=== PATIENT | male | born 1975 | race Caucasian/White ===

== ENCOUNTER → 2020-03-14 14:48 | Outpatient (BNVA) | payer MEDICARE, OTHER, SELFPAY | PROVIDERS: PCP Internal Medicine; Visit Provider Internal Medicine | DX: R00.0 Tachycardia, unspecified (principal); I10 Essential (primary) hypertension; Z79.899 Other long term (current) drug therapy | CPT/HCPCS: 99214 ==

== ENCOUNTER 2020-06-28 15:03 | Outpatient (REF) | payer MEDICARE, OTHER, SELFPAY ==
[2020-06-28 16:24] LABS: MANUAL DIFF FLAG NO
[2020-06-28 16:38] LABS: Basophils Absolute Auto 0.1 X10*3/uL (0.0-0.2); Basophils Percent Auto 0.7 % (0-2); Eosinophils Absolute Auto 0.4 X10*3/uL (0.0-0.4); Eosinophils Percent Auto 3.5 % (0-4); Hematocrit 42.2 % (42-52); Hemoglobin 13.8 g/dl (14.0-18.0); Imm Gran Abs Auto 0.24 X10*3/uL (0.00-0.03); Imm Gran Pct Auto 2.3 % (0.0-0.4); Lymphocytes Absolute Auto 2.9 X10*3/uL (1.2-4.9); Lymphocytes Percent Auto 27.8 % (20-40); Mean Corpuscular HGB Conc 32.7 g/dl (31.0-36.0); Mean Corpuscular Volume 91.7 fL (80-98); Mean Platelet Volume 10.4 fL (9.4-12.4); Monocytes Absolute Auto 0.9 X10*3/uL (0.1-1.2); Monocytes Percent Auto 8.7 % (2-11); Neutrophils Absolute Auto 5.9 X10*3/uL (2.0-8.3); Platelet Count 165 X10*3/uL (160-400); Red Cell Distribution Width 13.3 % (11.0-16.0); White Blood Count 10.4 X10*3/uL (4.8-10.8)
[2020-06-28 17:09] LABS: Alanine Aminotransferase 21 U/L (0-40); Albumin Level 4.5 g/dL (3.5-5.0); Alkaline Phosphatase 48 U/L (39-117); Anion Gap 16 (12-20); Aspartate Amino Transferase 14 U/L (5-37); Bilirubin Total 0.2 mg/dL (0.0-1.0); Blood Urea Nitrogen 14 mg/dL (9-16); C Reactive Protein 0.09 mg/dL (< or = 0.50); Calcium 9.3 mg/dL (8.4-10.2); Carbon Dioxide 26 mmol/L (22-29); Chloride 101 mmol/L (96-108); Estimated Glomerular Filt Rate > 60; Glucose Random 101 mg/dL (60-115); Potassium 4.2 mmol/l (3.3-5.1); Sodium 139 mmol/L (135-145); Total Protein 7.9 g/dL (6.5-8.0)
== END 2020-06-28 15:04 | disposition home or self-care (01) ==
LOC: HO.LAB 15:03
PROVIDERS: PCP Internal Medicine; Visit Provider Internal Medicine
DX: R07.0 Pain in throat (principal); M54.2 Cervicalgia
CPT/HCPCS: 36415; 80053; 85025; 86140; 87071; 87880

== ENCOUNTER → 2020-07-15 10:44 | Outpatient (BNVA) | payer MEDICARE, OTHER, SELFPAY | PROVIDERS: Visit Provider Orthopaedic Surgery | DX: M17.11 Unilateral primary osteoarthritis, right knee (principal) | CPT/HCPCS: 20610; 99212; J1100 ==

== ENCOUNTER 2020-07-16 13:20 | Outpatient (REF) | payer MEDICARE, OTHER, SELFPAY ==
--- NOTE | 2020-07-16 13:23 | CT_ITS ---
EXAMINATION: CT SOFT TISSUE NECK WITHOUT CONTRAST CLINICAL INFORMATION: NECK PAIN RIGHT ANTERIOR COMPARISON: None TECHNIQUE: Helical imaging was performed in the axial plane with generation of coronal and sagittal reformatted images. This CT examination was performed using dose optimization techniques as appropriate, variously including the following: *Automated exposure control *Adjustment of mA and/or kV according to patient size (this includes techniques or standardized protocols for targeted exams where dose is matched to indication/reason for exam; i.e. extremities or head) *Use of iterative reconstruction technique FINDINGS: Limited noncontrast CT of the neck. Nonpathologic size criteria lymph nodes throughout the suprahyoid in the infrahyoid neck without pathologic size criteria lymphadenopathy. Calcified tonsilliths within the left palatine tonsil. Nondiagnostic assessment for superficial mucosal space lesions given the lack of contrast without any definite contour abnormalities identified. Multifocal skin thickening and probable sebaceous cysts that can be correlated clinically. The thyroid gland, submandibular glands, and parotid glands are unremarkable. There is multilevel cervical spondylosis. Moderate polypoid mucosal thickening along the floors of the maxillary sinuses bilaterally. The remaining paranasal sinuses and the mastoid air cells are clear. The imaged upper lungs are clear. Imaged upper mediastinum is unremarkable. CT/CT soft tissue neck wo con IMPRESSION: - Limited noncontrast CT of the neck. Nonpathologic size criteria lymph nodes throughout the suprahyoid in the infrahyoid neck without pathologic size criteria lymphadenopathy. - Multifocal skin thickening and probable sebaceous cysts that can be correlated clinically. - There is multilevel cervical spondylosis. - Moderate polypoid mucosal thickening along the floors of the maxillary sinuses bilaterally.
== END 2020-07-16 13:21 | disposition home or self-care (01) ==
LOC: HO.CT 13:20
PROVIDERS: PCP Internal Medicine; Visit Provider Internal Medicine
DX: M54.2 Cervicalgia (principal)
CPT/HCPCS: 70490

== ENCOUNTER → 2020-08-29 13:33 | Outpatient (BNVA) | payer MEDICARE, OTHER, SELFPAY | PROVIDERS: Visit Provider Orthopaedic Surgery | DX: Z13.89 Encounter for screening for other disorder (principal) | CPT/HCPCS: 99212 ==

== ENCOUNTER → 2020-10-01 13:15 | Outpatient (BNVA) | payer MEDICARE, OTHER, SELFPAY | PROVIDERS: PCP Internal Medicine; Visit Provider Internal Medicine | DX: R00.0 Tachycardia, unspecified (principal); I10 Essential (primary) hypertension; E66.01 Morbid (severe) obesity due to excess calories | CPT/HCPCS: 99212 ==

== ENCOUNTER 2020-11-25 08:08 | Outpatient (REF) | payer MEDICARE, OTHER, SELFPAY ==
--- NOTE | ~2020-11-25 | XR_ITS ---
EXAMINATION: XR KNEE, RIGHT XR KNEE, BILATERAL CLINICAL INFORMATION: Right knee pain. COMPARISON: None TECHNIQUE: AP bilateral knees standing. Right knee 2 views. FINDINGS: AP Bilateral Knee: There is reduction in the medial compartment joint space both knees. There is mild periarticular spurring lateral compartment right knee. No visible acute fracture or loose bodies. Right Knee: The patellofemoral compartment joint space is maintained normal. There is superior periarticular spurring patellofemoral joint. No loose bodies, bony erosive changes or joint effusion seen. XR/XR knee RT 2V IMPRESSION: Mild degenerative changes patellofemoral and medial compartment joint space right knee. There is periapical spurring in the lateral compartment, as well. No loose bodies or abnormal joint effusion seen. Mild degenerative changes medial compartment left knee.
--- NOTE | ~2020-11-25 | XR_ITS ---
EXAMINATION: XR KNEE, RIGHT XR KNEE, BILATERAL CLINICAL INFORMATION: Right knee pain. COMPARISON: None TECHNIQUE: AP bilateral knees standing. Right knee 2 views. FINDINGS: AP Bilateral Knee: There is reduction in the medial compartment joint space both knees. There is mild periarticular spurring lateral compartment right knee. No visible acute fracture or loose bodies. Right Knee: The patellofemoral compartment joint space is maintained normal. There is superior periarticular spurring patellofemoral joint. No loose bodies, bony erosive changes or joint effusion seen. XR/XR knee standing BI IMPRESSION: Mild degenerative changes patellofemoral and medial compartment joint space right knee. There is periapical spurring in the lateral compartment, as well. No loose bodies or abnormal joint effusion seen. Mild degenerative changes medial compartment left knee.
== END 2020-11-25 08:09 | disposition home or self-care (01) ==
LOC: HO.HOSX 08:08
PROVIDERS: Visit Provider Orthopaedic Surgery
DX: M17.11 Unilateral primary osteoarthritis, right knee (principal)
CPT/HCPCS: 20610; 73560; 73565; 99212; J1100

== ENCOUNTER 2020-12-12 07:17 | Day surgery (SDC) | payer MEDICARE, OTHER, SELFPAY ==
[2020-12-09 14:40] VITALS: BMI 44.1
--- NOTE | 2020-12-10 13:28 | P.CONAN_ITS ---
Documented by User: Martha Ashley 12/10/20 13:52 HPI - Anesthesia Eval Consult details Narrative: 45yo M for Right Brown Bunionectomy PCP clearance pending. T/C 12/10/20: Pt anxious RE: anesthesia because was told Difficult Airway with nephrectomy and friend recently had adverse event with intubation. [Review of nephrectomy anesthesia records reveals Mallampati Class III (large tongue, large and short neck, large head). Glidescope used with view grade 1 and easy intubation.] Discussed MAC with GA back up, glidescope availability. Educated on peripheral block and usual minimal opiate needs of podiatry patients that have blocks from surgeon. LEANNA, but pt admits noncompliant with CPAP. Educated and stressed importance of compliance and benefits of CPAP use during periop home. Pt agreeable to use QHS leading up to surgery and will bring DOS. Will have S.O. at home postop and will use CPAP at home with all sleep postop. PMFSH Active Problems Active Problems: All Active Problems (Updated 12/09/20 @ 14:40 by Veda Everett) Otitis media (Acute) Pectoralis muscle strain (Acute) Localized osteoarthritis of right knee (Acute) Morbid obesity (Acute) Tachycardia (Acute) Essential hypertension (Acute) Sinus tachycardia (Acute) Past Medical History Medical History (Updated 12/09/20 @ 14:40 by Veda Everett) Anxiety Arthritis Essential hypertension History of general anesthesia History of seizures Morbid obesity Seasonal allergies Sinus tachycardia Sleep apnea Tachycardia Family History Family History Father Dementia Mother No problems noted. Surgical History Surgical History (Updated 12/09/20 @ 14:39 by Veda Everett) History of nephrectomy, left History of wisdom tooth extraction Hx of brain surgery (~1992) Social History Social History (Updated 11/25/20 @ 09:24 by ROSALBA Elena) Alcohol intake: current Alcohol intake frequency: does not drink Patient Tobacco Use Status: Never used Tobacco Use of substances other than those prescribed or required for medical reasons: No Are you DNR?: No Advance Directives: No Advance Directives Information Provided: No Advance Directives on File: No Meds Allergies Allergy/AdvReac Type Severity Reaction Status Date / Time carbamazepine [From TEGRETOL] Allergy Severe RASH Verified 12/09/20 14:36 Home Medications Medication Instructions Recorded Confirmed Last Taken Type divalproex 125 mg tablet,delayed 125 mg PO BID 03/11/20 12/09/20 12/12/20 06:15 History release divalproex 500 mg tablet,extended 1,500 mg PO BID 03/11/20 12/09/20 12/12/20 06:15 History release 24 hr levetiracetam 1,000 mg tablet 1,000 mg PO BID 03/11/20 12/09/20 12/12/20 06:15 History levetiracetam 250 mg tablet 250 mg PO BID 03/11/20 12/09/20 12/12/20 06:15 History clindamycin phosphate 1 % topical 1 appl TOPICAL BID 11/25/20 Unknown History gel Exam Exam Date and Time: December 10, 2020 1328 Height,Weight and Vital Signs: Height 6 ft 1 in Weight 151.953 kg Assessment and Plan Assessment Anesthesia Assessment: Chart Reviewed Documented by User: Radames Rodriguez MD 12/12/20 08:07 [facility] [place] Past Medical History Medical History (Updated 12/09/20 @ 14:40 by Veda Everett) Anxiety Arthritis Essential hypertension History of general anesthesia History of seizures Morbid obesity Seasonal allergies Sinus tachycardia Sleep apnea Tachycardia Family History Family History Father Dementia Mother No problems noted. Surgical History Surgical History (Updated 12/09/20 @ 14:39 by Veda Everett) History of nephrectomy, left History of wisdom tooth extraction Hx of brain surgery (~1992) Social History Social History (Updated 11/25/20 @ 09:24 by ROSALBA Elena) Alcohol intake: current Alcohol intake frequency: does not drink Patient Tobacco Use Status: Never used Tobacco Use of substances other than those prescribed or required for medical reasons: No Are you DNR?: No Advance Directives: No Advance Directives Information Provided: No Advance Directives on File: No Meds Allergies Allergy/AdvReac Type Severity Reaction Status Date / Time carbamazepine [From TEGRETOL] Allergy Severe RASH Verified 12/09/20 14:36 Home Medications Medication Instructions Recorded Confirmed Last Taken Type divalproex 125 mg tablet,delayed 125 mg PO BID 03/11/20 12/09/20 12/12/20 06:15 History release divalproex 500 mg tablet,extended 1,500 mg PO BID 03/11/20 12/09/20 12/12/20 06:15 History release 24 hr levetiracetam 1,000 mg tablet 1,000 mg PO BID 03/11/20 12/09/20 12/12/20 06:15 History levetiracetam 250 mg tablet 250 mg PO BID 03/11/20 12/09/20 12/12/20 06:15 History clindamycin phosphate 1 % topical 1 appl TOPICAL BID 11/25/20 Unknown History gel Exam Airway Mallampati Class: III TM Dist: >3cm Neck ROM: Full Loose/Missing/Broken Teeth: No Heart: RRR Assessment and Plan Assessment Anesthesia Assessment: Anesthesia Plan Discussed and Chart Reviewed Final Anesthetic Review NPO: Yes ASA Class: III Final Preanesthetic Review: No Changes in Pt Med Stat, Meds/Allgs Chart Reviewed, Consent Obtained/Reviewed and Anes Risks/Benef Reviewed Patient Risk: High Procedure Risk: Low Anesthetic Plan Anesthetic Plan: MAC: (Llight sedaton, low threshold to convert to GETA, pt on board) Disposition: Standard PACU
--- NOTE | 2020-12-10 18:17 | HP_ITS ---
DATE OF SERVICE: 12/12/2020 HISTORY OF PRESENT ILLNESS: The patient is a 45-year-old male scheduled for right foot spur surgery on 12/12/[address] Fine. The patient was seen in the office on 12/02/2020. PRESENT MEDICATIONS: Losartan 100 mg, Keppra 1250 mg twice a day, Depakote ER 125 twice a day, Zyrtec 10 mg once a day as needed for allergies or hay fever. PAST MEDICAL HISTORY: Significant for morbid obesity, hypertension, seizure disorder, right pectoral pain it has been evaluated extensively, obstructive sleep apnea, tachycardia, anemia, right knee pain. ALLERGIES: THE PATIENT LISTS ALLERGIES TO ZITHROMAX AND TEGRETOL. FAMILY HISTORY: Mother has hypertension and anxiety. Father recently from Alzheimer disease and hypertension, had a history of atrial fibrillation. No siblings. SOCIAL HISTORY: He lives with his mother. He is presently disabled from working due to the seizure disorder. He is a nonsmoker. REVIEW OF SYSTEMS: No fevers or chills. No headaches. No chest pains or palpitations. Dry cough. No wheezing or shortness of breath. No stomach pains or heartburn. No urinary complaints. Some right knee pain. He uses CPAP for sleeping. Some rhinitis. No skin lesions. PHYSICAL EXAMINATION: GENERAL: He is awake and alert, in no distress. VITAL SIGNS: Temperature 98.4, pulse is 112, respirations 12, pressure was initially 148/94. He came back in today, on December 10, for a recheck and he was improved to 124/90. O2 saturation 96%. Weight is 338, height is 6 feet. HEENT: Pupils equal. TMs clear. Pharynx clear. NECK: Supple. No lymph nodes, bruits, or masses. HEART: Sounds S1, S2. Regular rate. LUNGS: Clear. ABDOMEN: Soft. Positive bowel sounds. Nontender. EXTREMITIES: No clubbing, cyanosis, or edema. 1+ pulses. NEUROLOGIC: Cranial nerves II through XII are intact. LABORATORY DATA: Labs have been done in the hospital and are available on [facility] or [employer]. EKG was completed in the office, shows sinus tachycardia at 115. No acute ischemic changes. Normal variant of EKG. ASSESSMENT AND PLAN: The patient is medically stable for the proposed procedure. I will be available if there are any medical questions. Suhail Degroot MD FC/MODL / [id number]
--- NOTE | 2020-12-11 13:54 | HP_ITS ---
DATE OF SERVICE: 12/12/2020 DATE OF PROPOSED SURGERY: December 12, 2020. PREOPERATIVE DIAGNOSIS: Hallux rigidus, right first metatarsophalangeal joint. PLANNED PROCEDURES: Either Brown bunionectomy or cheilectomy of the right first metatarsophalangeal joint. PLANNED ANESTHSIA: MAC or LMA. The patient has a history of sleep apnea and also seizure disorder. CHIEF COMPLAINT AND HISTORY OF PRESENT ILLNESS: Vipin Leger Junior is a 45-year-old male who relates history of painful arthritic, achy, stiff joint of the right great toe joint present over the past several months duration. His pain is aggravated by shoe gear and walking activity. Conservative treatment consisting of altered shoe gear as well as cortisone injection therapy has proven ineffective in resolving his symptoms. The patient is now requesting surgical treatment. PAST MEDICAL HISTORY: Remarkable for epilepsy, sleep apnea, anxiety. CURRENT MEDICATIONS: Keppra 250 mg, losartan, lisinopril, divalproex sodium 125 mg. ALLERGIES: THE PATIENT HAS NEGATIVE REACTION TO TEGRETOL. FAMILY HISTORY: Significant for hypertension, foot problems, and diabetes. SOCIAL HISTORY: The patient denies smoking, denies alcohol consumption. He denies use of any recreational drugs. The patient does drink caffeinated drinks. The patient is single and on disability. PODIATRIC PHYSICAL EXAM: VASCULAR EXAM: The patient displays +2/4 pulses of the DP and PT arteries bilateral with normal cap refill time noted in bilateral feet. DERMATOLOGIC EXAM: Reveals intact skin in bilateral feet. ORTHOPEDIC EXAM: Reveals painful limited range of motion in right first metatarsophalangeal joint with pain on palpation noted particularly dorsum of right first metatarsophalangeal joint. NEUROLOGIC EXAM: Reveals intact sensation with pain on palpation noted dorsum right first MTP joint. The patient was seen most recently in my office on December 02, 2020. Preoperative informed consent was obtained from the patient that day. Preop medical clearance has been provided by Dr. Pan Degroot. PAULA [place]/RACHEAL / [id number]
[2020-12-12 07:29] VITALS: BP 158/96; PULSE 124; RESP 18; TEMP 36.9; O2SAT 94
[2020-12-12] MEDS: Lactated Ringers 1,000 ML 100 ML IVCONT (07:54)
[2020-12-12 08:15] VITALS: PULSE 115
--- NOTE | 2020-12-12 08:43 | MHC.SHP ---
Pre-Procedural Eval Section A Date of Service: 12/12/20 Section B Chief Complaint: Hallux Rigidus right Allergies: Allergies Allergy/AdvReac Type Severity Reaction Status Date / Time carbamazepine [From TEGRETOL] Allergy Severe RASH Verified 12/09/20 14:36 Plan I have reviewed the history and physical and performed a pertinent physical examination on my patient. No changes have occurred unless specified.
--- NOTE | 2020-12-12 09:53 | PM.PROC ---
Brief Operative Note Date of procedure: 12/12/20 Pre-op diagnosis: hallux rigidus right Post-op diagnosis: same Procedure: corbin bunionectomy right foot Anesthesia: MAC Surgeon: Sal Fine Computer Tech: Lizeth Olguin Estimated blood loss (mL): 1.0 Condition: stable Disposition: PACU
[2020-12-12 09:55] VITALS: BP 146/80; PULSE 108; RESP 18; TEMP 36.3; O2SAT 92
[2020-12-12 10:11] VITALS: BP 132/75; PULSE 110; RESP 18; TEMP 36.3; O2SAT 94
--- NOTE | 2020-12-12 11:27 | OP_ITS ---
SURGEON: Sal Fine DPM PREOPERATIVE DIAGNOSIS: Hallux rigidus, right foot. POSTOPERATIVE DIAGNOSIS: Hallux rigidus, right foot. PROCEDURE PERFORMED: Patel bunionectomy of the right foot. ESTIMATED BLOOD LOSS: COMPLICATIONS: ANESTHESIA: Consisted of local administration of a total of 16 mL of an equal mix of 2% lidocaine with epinephrine 1:100,000 and 0.5% Marcaine plain. Intravenous sedation was provided by the Anesthesia Department. ASSISTANTS: SPECIMENS: INTRODUCTION: The patient brought to the operating room and placed on the operating table in supine position. After having been suitably anesthetized with local infiltrative anesthesia, the right lower extremity was then prepped and draped in usual sterile manner. Please note that prior to start of procedure, right foot was exsanguinated utilizing an Esmarch bandage and right ankle tourniquet was inflated to 250 mmHg pressure for the duration of the procedure. PATEL BUNIONECTOMY OF THE RIGHT FOOT. Attention was directed to the dorsum of the right first metatarsophalangeal joint, where an incision of approximately 6 cm in length was effected, centered over the dorsum of the right first metatarsophalangeal joint. Incision was deepened in the same plane and hemostasis was acquired as necessary. The skin margins were underscored and retracted. The capsule was then incised through a dorsal linear incision. The capsule and the periosteum were underscored and retracted. Upon doing so, there was evidence of extensive hypertrophic bone on the dorsum of the right first metatarsal head and the base of the proximal phalanx. This was resected utilizing a sagittal saw as well as sharp dissection, bone rongeurs, and bone forceps. The medial eminence of the first metatarsal head was likewise resected utilizing a bone saw. The head of the first metatarsal was resected in a modified Vasyl fashion to try to remove as much of the damaged articular surface, and there was found to be extensive damage to the first metatarsal head secondary to the arthritic changes. The first intermetatarsal space was exposed via blunt dissection. A lateral capsulotomy and adductor tenotomy were performed via sharp dissection. Attention was directed back to the joint, where all bone surfaces that had the bone resection were rasped smooth utilizing a power reciprocating rasp. The wound was irrigated with copious amounts of sterile saline. The capsule was then closed with 3-0 Vicryl, one-half of 4 x 4 cm AmnioFix was placed inside the capsule during closure, and then, the subcutaneous tissue was closed with 4-0 Monocryl and the second half the AmnioFix was placed inside the subcutaneous tissue during closure of the skin. Skin margins were then reinforced with 4-0 nylon. The surgical site was then further dressed with the Wilson ZipLine skin closure and then injected with a total of 5 mL of Marcaine 0.5% plain and 1 mL of dexamethasone phosphate. Sterile Adaptic, Betadine-soaked gauze, gauze, Kerlix, fluffs were then applied, and the right lower extremity was then further bandaged with 4-inch Conform. The right ankle tourniquet was deflated. Normal blood flow was reestablished to the right lower extremity. Webril and Good wrap padding were also placed over the right lower extremity. . The patient tolerated the surgery and anesthesia well and left the operating room via cart to the recovery room with vital signs stable. FINAL DISPOSITION: The patient is discharged home with instructions for self-care to include the followin. To keep the dressings dry, clean, and intact. 2. To keep the right leg elevated with ice above the ankle. 3. To take all medications as prescribed. 4. To limit activity to minimum. 5. To always use surgical shoe and crutches when ambulating. 6. To contact Dr. Fine if any questions or problems arise. 7. The patient has prescriptions for Motrin or ibuprofen 800 mg, total #90, one p.o. t.i.d. p.c., and a prescription for oxycodone 5 mg, total #10, one p.o. q.6h p.r.n. pain. GEOTHERMAL OPERATING ENGINEER: PAULA Salazar DPM WW/RACHEAL / [id number]
== END 2020-12-12 11:20 ==
LOC: HO.SSS 07:18
PROVIDERS: PCP Internal Medicine; Visit Provider Podiatrist
PROC: (CPT 28292; principal; 2020-12-12 08:30)
DX: M20.21 Hallux rigidus, right foot (principal); G47.33 Obstructive sleep apnea (adult) (pediatric); G40.909 Epilepsy, unspecified, not intractable, without status epilepticus; F41.9 Anxiety disorder, unspecified; Z79.899 Other long term (current) drug therapy
CPT/HCPCS: 28292; 88304; 88311; J0690; J1100; J2250; J3590

== ENCOUNTER → 2021-02-14 12:20 | Outpatient (BNVA) | payer MEDICARE, OTHER, SELFPAY | PROVIDERS: PCP Internal Medicine; Visit Provider Orthopaedic Surgery | DX: M17.11 Unilateral primary osteoarthritis, right knee (principal); I10 Essential (primary) hypertension; E66.01 Morbid (severe) obesity due to excess calories; Z88.6 Allergy status to analgesic agent | CPT/HCPCS: 20610; 99212; J1100 ==

== ENCOUNTER → 2021-04-01 13:41 | Outpatient (BNVA) | payer MEDICARE, OTHER, SELFPAY | PROVIDERS: PCP Internal Medicine; Referring Provider Internal Medicine; Visit Provider Internal Medicine | DX: E66.01 Morbid (severe) obesity due to excess calories (principal); I10 Essential (primary) hypertension; R00.0 Tachycardia, unspecified | CPT/HCPCS: 93005; 99212 ==

== ENCOUNTER → 2021-07-24 12:29 | Outpatient (BNVA) | payer MEDICARE, OTHER, SELFPAY | PROVIDERS: PCP Internal Medicine; Visit Provider Orthopaedic Surgery | DX: M17.11 Unilateral primary osteoarthritis, right knee (principal) | CPT/HCPCS: 20610; 99212; J1100 ==

== ENCOUNTER → 2021-09-30 14:06 | Outpatient (BNVA) | payer MEDICARE, OTHER, SELFPAY | PROVIDERS: PCP Internal Medicine; Referring Provider Internal Medicine; Visit Provider Internal Medicine | DX: I10 Essential (primary) hypertension (principal); R00.0 Tachycardia, unspecified; E66.01 Morbid (severe) obesity due to excess calories; Z68.41 Body mass index [BMI] 40.0-44.9, adult | CPT/HCPCS: 99212 ==

== ENCOUNTER → 2022-02-02 12:36 | Outpatient (BNVA) | payer MEDICARE, OTHER, SELFPAY | PROVIDERS: PCP Internal Medicine; Visit Provider Orthopaedic Surgery | DX: M17.11 Unilateral primary osteoarthritis, right knee (principal) | CPT/HCPCS: 20610; J1100 ==

== ENCOUNTER → 2022-05-14 11:10 | Outpatient (BNVA) | payer MEDICARE, OTHER, SELFPAY | PROVIDERS: PCP Internal Medicine; Visit Provider Orthopaedic Surgery | DX: M17.11 Unilateral primary osteoarthritis, right knee (principal) | CPT/HCPCS: 20610; 99212; J1100 ==

== ENCOUNTER → 2022-08-10 12:15 | Outpatient (BNVA) | payer MEDICARE, OTHER, SELFPAY | PROVIDERS: PCP Internal Medicine; Visit Provider Orthopaedic Surgery | DX: M17.11 Unilateral primary osteoarthritis, right knee (principal); S80.01XA Contusion of right knee, initial encounter; W22.03XA Walked into furniture, initial encounter; Y93.69 Activity, other involving other sports and athletics played as a team or group; Y92.9 Unspecified place or not applicable; Y99.8 Other external cause status | CPT/HCPCS: 99212 ==

== ENCOUNTER → 2022-09-10 12:20 | Outpatient (BNVA) | payer MEDICARE, OTHER, SELFPAY | PROVIDERS: PCP Internal Medicine; Visit Provider Orthopaedic Surgery | DX: M17.11 Unilateral primary osteoarthritis, right knee (principal); S80.01XA Contusion of right knee, initial encounter; W21.89XA Striking against or struck by other sports equipment, initial encounter; Y93.89 Activity, other specified; Y92.9 Unspecified place or not applicable; Y99.9 Unspecified external cause status | CPT/HCPCS: 20610; 99212; J1100 ==

== ENCOUNTER → 2022-09-24 13:08 | Outpatient (BNVA) | payer MEDICARE, OTHER, SELFPAY | PROVIDERS: PCP Internal Medicine; Referring Provider Internal Medicine; Visit Provider Internal Medicine | DX: R00.0 Tachycardia, unspecified (principal); I10 Essential (primary) hypertension; E66.01 Morbid (severe) obesity due to excess calories; Z68.41 Body mass index [BMI] 40.0-44.9, adult; Z79.899 Other long term (current) drug therapy | CPT/HCPCS: 93005; 99212 ==

== ENCOUNTER → 2022-12-07 12:46 | Outpatient (BNVA) | payer MEDICARE, OTHER, SELFPAY | PROVIDERS: PCP Internal Medicine; Visit Provider Orthopaedic Surgery | DX: M17.11 Unilateral primary osteoarthritis, right knee (principal) | CPT/HCPCS: 20610; 99212; J1040 ==

== ENCOUNTER 2023-04-20 10:21 | Outpatient (REF) | payer MEDICARE, OTHER, SELFPAY ==
--- NOTE | ~2023-04-20 | XR_ITS ---
EXAMINATION: XR KNEE, RIGHT CLINICAL INFORMATION: Pain in right knee COMPARISON: 11/25/2020 TECHNIQUE: Three views of the right knee. FINDINGS: Moderate tricompartmental osteophytes. Medial joint space narrowing. Moderate joint effusion. XR/XR knee RT 3V IMPRESSION: Moderate degenerative changes.
== END 2023-04-20 10:22 | disposition home or self-care (01) ==
LOC: HO.HOSX 10:21
PROVIDERS: Visit Provider Orthopaedic Surgery
DX: M17.11 Unilateral primary osteoarthritis, right knee (principal)
CPT/HCPCS: 20610; 73562; J1040

== ENCOUNTER 2023-04-20 12:50 | Outpatient (AMB) | payer MEDICARE, OTHER, SELFPAY ==
--- NOTE | 2023-04-20 13:23 | A.OFFVIS_ITS ---
Intake Vital Signs 04/20/23 13:25 Height 6 ft 1 in Weight 233 lb BMI 30.7 Intake Visit Reasons: OV-Right Knee OA - last injection-12/07/22 Intake Note: Vipin is a 47 year old male who presents today for a follow up for his right knee pain, last injection 12/07/22. Patient reports his last injection gave him 3+ months with relief and would like to repeat. Allergies carbamazepine [From TEGRETOL] Allergy (Severe, Verified 12/07/22 13:01) RASH lamotrigine [From Lamictal] Adverse Reaction (Verified 12/07/22 13:01) Hallucinations HPI OV-Right Knee OA - last injection-12/07/22 HPI Details 47-year-old male who presents in the off ice today for a follow up of right knee pain. The patient had a cortisone injection in the right knee on 12/07/2022. He states his last injection gave him 3+ months of relief. He would like another injection while in the office today. [facility] Medical History Anxiety Arthritis Contusion of right knee Essential hypertension History of general anesthesia History of seizures Morbid obesity Seasonal allergies Sinus tachycardia Sleep apnea Tachycardia Surgical History History of nephrectomy, left History of wisdom tooth extraction Hx of brain surgery (~1992) Family History Father Dementia Mother No problems noted. Social History Alcohol intake: never Patient Tobacco Use Status: Never used Tobacco Review of Systems Const All systems reviewed & are unremarkable except as noted in HPI and below Physical Exam Vital Signs: BMI result Body Mass Index 30.7 Const General: cooperative, healthy appearing and no acute distress Resp Effort & Inspection: normal respiratory effort and able to speak in complete sentences Cardio Rate: regular rate Peripheral pulses: Peripheral pulses 2+ throughout GI Palpation (GI): Soft to palpation Skin Lesions: no lesions Rashes: no rashes Extrem Other: Right Knee: TTP mild medial joint line No effusion Office Procedures Joint Injection/Drain Joint Injection/Drain Primary Site: right knee Prep: site was prepped using aseptic technique, ethochloride spray was applied and injection warnings given Injected: 80 mg of, DepoMedrol, with 8 mL of (2% plain lido ) and in the joint Approach Used: anterolateral Procedure: The patient tolerated the procedure well, but had some pain with the injection and there was some relief with the local anesthesia Coding 82618 - Large joint Procedure code (CPT) selection complete Results Reviewed Results Reviewed: 04/20/23 13:20 Lidocaine HCl 2 % MPF [Xylocaine 2 % MPF] 5 ml .ROUTE .STK-MED ONE methylPREDNISolone acetate [DEPO-MedroL] 80 mg .ROUTE .STK-MED ONE Assessment & Plan Assessment & Plan (1) Localized osteoarthritis of right knee: Code(s): M17.11 - Unilateral primary osteoarthritis, right knee Plan Mr. Leger is a 47-year-old male who presents in the office today for a follow up of right knee pain. The patient had a cortisone injection in the right knee on 12/07/2022. He states his last injection gave him 3+ months of relief. He would like another injection while in the office today. The patient was offered a cortisone injection in the right knee with 80 mg of DepoMedrol. The patient was explained the risk, benefits, and alternatives to receiving this injection. After receiving consent for the injection, the patient had the procedure done while in office today. The patient tolerated the procedure well with no complications. Follow up will be PRN, or sooner if needed. X-rays of the right knee which were obtained while in the office today and were reviewed by me, Sherice Feliciano PA-C, revealed no acute fracture or dislocation. Orders: Orders XR knee RT 3V Today M25.561 - Pain in right knee Patient Instructions: Scribed for Sherice Feliciano PA-C by [facility] center medical director, on 04/20/2023 at 1:05 pm, EST. Coding Level of Care Code Est Pt Level 3 (39120) Diagnoses Localized osteoarthritis of right knee M17.11 CPT Codes Coding - 00995 Large joint: 32650 - Large joint ([id number])
[2023-04-20 13:25] VITALS: BMI 30.7
== END 2023-04-20 13:34 | disposition home or self-care (01) ==
PROVIDERS: PCP Internal Medicine; Visit Provider Physician Assistant
DX: M17.11 Unilateral primary osteoarthritis, right knee (principal)
CPT/HCPCS: 20610

== ENCOUNTER 2023-07-23 13:27 | Outpatient (AMB) | payer MEDICARE, OTHER, SELFPAY ==
--- NOTE | 2023-07-23 13:34 | A.OFFVIS_ITS ---
Intake Vital Signs 07/23/23 13:35 Height 6 ft 1 in Weight 233 lb BMI 30.7 Intake Visit Reasons: OV-Right Knee OA - last injection 04/20/23 Intake Note: Vipin is a 47 year old male who presents today for a follow up for his right knee OA, last injection 04/20/23. Patient reports his last injection didn't give him any relief, however he would to try again and see if another injection can give him relief. Allergies carbamazepine [From TEGRETOL] Allergy (Severe, Verified 07/23/23 13:35) RASH lamotrigine [From Lamictal] Adverse Reaction (Verified 07/23/23 13:35) Hallucinations HPI OV-Right Knee OA - last injection 04/20/23 HPI Details 48-year-old male who presents in the off ice today for a follow up of right knee pain. I last saw the patient in the office on 04/20/2023 where she received a cortisone injection in the right knee. While in the office today the patient reports the last cortisone injection did not give him any relief. However, he would like to try another to see if this one might give him some. ON LICENSE OF [facility] Medical History Anxiety Arthritis Contusion of right knee Essential hypertension History of general anesthesia History of seizures Morbid obesity Seasonal allergies Sinus tachycardia Sleep apnea Tachycardia Surgical History History of nephrectomy, left History of wisdom tooth extraction Hx of brain surgery (~1992) Family History Father Dementia Mother No problems noted. Social History Alcohol intake: never Patient Tobacco Use Status: Never used Tobacco Review of Systems Const All systems reviewed & are unremarkable except as noted in HPI and below Physical Exam Vital Signs: BMI result Body Mass Index 30.7 Const General: cooperative, healthy appearing and no acute distress Resp Effort & Inspection: normal respiratory effort and able to speak in complete sentences Cardio Rate: regular rate Peripheral pulses: Peripheral pulses 2+ throughout GI Palpation (GI): Soft to palpation Skin Lesions: no lesions Rashes: no rashes Extrem Other: Right Knee: TTP mild medial joint line No effusion Office Procedures Joint Injection/Drain Joint Injection/Drain Primary Site: right knee Prep: site was prepped using aseptic technique, ethochloride spray was applied and injection warnings given Injected: 80 mg of, DepoMedrol, with 8 mL of (2% plain lido ) and in the joint Approach Used: anterolateral Procedure: The patient tolerated the procedure well, but had some pain with the injection and there was some relief with the local anesthesia Coding - Large joint Procedure code (CPT) selection complete Assessment & Plan Assessment & Plan (1) Localized osteoarthritis of right knee: Code(s): M17.11 - Unilateral primary osteoarthritis, right knee Plan Mr. Leger is a 48-year-old male who presents in the office today for a follow up of right knee pain. I last saw the patient in the office on 04/20/2023 where she received a cortisone injection in the right knee. While in the office today the patient reports the last cortisone injection did not give him any relief. However, he would like to try another to see if this one might give him some. The patient was offered a cortisone injection in the right knee with 80 mg of DepoMedrol. The patient was explained the risk, benefits, and alternatives to receiving this injection. After receiving consent for the injection, the patient had the procedure done while in office today. The patient tolerated the procedure well with no complications. Follow up will be PRN, or sooner if needed. Patient Instructions: Scribed by Shelby Burks medical staff manager, for Sherice Feliciano PA-C on 07/23/2023 at 1:39 pm, EST. Coding Level of Care Code Est Pt Level 3 (57092) Diagnoses Localized osteoarthritis of right knee M17.11 CPT Codes Coding - Large joint: 34375 - Large joint ([id number])
[2023-07-23 13:35] VITALS: BMI 30.7
== END 2023-07-23 13:45 | disposition home or self-care (01) ==
PROVIDERS: PCP Internal Medicine; Visit Provider Physician Assistant
DX: M17.11 Unilateral primary osteoarthritis, right knee (principal)
CPT/HCPCS: 20610; 99213

== ENCOUNTER → 2023-07-23 13:27 | Outpatient (BNVA) | payer MEDICARE, OTHER, SELFPAY | PROVIDERS: PCP Internal Medicine; Visit Provider Physician Assistant | DX: M17.11 Unilateral primary osteoarthritis, right knee (principal) | CPT/HCPCS: 20610; J1040 ==

== ENCOUNTER 2023-09-14 14:43 | Outpatient (AMB) | payer MEDICARE, OTHER, SELFPAY ==
--- NOTE | 2023-09-14 14:45 | AM.OFFWIN_ITS ---
Intake Vital Signs 09/14/23 14:47 Height 6 ft 1 in Weight 307 lb BMI 40.5 BP 140/88 H Blood Pressure Location Lt brachial Position Sitting Pulse 99 Pulse Source Pulse Oximeter Temp 98.9 F Temp Source Oral Pulse Oximetry (%) 97 Oxygen Delivery Method Room Air Intake Visit Reasons: EP sore throat (lobby) Intake Note: pt is here for c/o sore throat Patient Tobacco Use Status: Never used Tobacco Allergies carbamazepine [From TEGRETOL] Allergy (Severe, Verified 09/14/23 14:47) RASH lamotrigine [From Lamictal] Adverse Reaction (Verified 09/14/23 14:47) Hallucinations Do you need a note to return to daycare/school/sports/work: No HPI HPI Comments History of Present Illness Details 48-year-old male presents today complain ing of a sore throat matter congested for 2 days. States he was visiting his mother who also had similar symptoms. [facility] Medical History Anxiety Arthritis Contusion of right knee Essential hypertension History of general anesthesia History of seizures Morbid obesity Seasonal allergies Sinus tachycardia Sleep apnea Tachycardia Surgical History History of nephrectomy, left History of wisdom tooth extraction Hx of brain surgery (~1992) Family History Father Dementia Mother No problems noted. Social History Alcohol intake: never Patient Tobacco Use Status: Never used Tobacco Review of Systems Const All systems reviewed & are unremarkable except as noted in HPI and below Eyes Reports no additional complaints ENT Reports no additional complaints Card Reports no additional complaints Resp Reports no additional complaints GI Reports no additional complaints Physical Exam Vital Signs: Last Vital Signs Temp 98.9 F 09/14/23 14:47 Pulse 99 09/14/23 14:47 BP 140/88 H 09/14/23 14:47 Pulse Ox 97 09/14/23 14:47 Oxygen Delivery Method Room Air 09/14/23 14:47 BMI result Body Mass Index 40.5 Const General: healthy appearing and no acute distress HEENT Head: Yes normal to inspection, Yes normocephalic and Yes atraumatic Ears: hearing grossly normal bilaterally General nose exam: Normal external nose present Throat: Yes posterior oropharynx normal Resp Effort & Inspection: normal respiratory effort Auscultation: clear to auscultation bilaterally Cardio Rate: regular rate Rhythm: regular rhythm Results AMB Rapid Strep AMB Rapid Strep Negative Last Edit by Lavon Luz CMA on 09/14/23 15 :09 Results Reviewed Results Reviewed: Rapid strep done today in the office was negative I ordered viral culture Assessment & Plan Assessment & Plan (1) Sore throat: Code(s): J02.9 - Acute pharyngitis, unspecified Plan 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
[2023-09-14 14:47] VITALS: BP 140/88; PULSE 99; TEMP 37.2; O2SAT 97; BMI 40.5
== END 2023-09-14 15:41 | disposition home or self-care (01) ==
PROVIDERS: PCP Internal Medicine; Visit Provider Physician Assistant Medical
DX: J02.9 Acute pharyngitis, unspecified (principal)
CPT/HCPCS: 87880; 99213

== ENCOUNTER 2023-09-14 16:54 | Outpatient (REF) | payer MEDICARE, OTHER, SELFPAY ==
[2023-09-14 18:05] LABS: Influenza A PCR NEGATIVE (Negative); Influenza B PCR NEGATIVE (Negative); Resp Syncy Virus RNA Qual PCR NEGATIVE (Negative); SARS COV2 PCR INHOUSE NEGATIVE (Negative)
== END 2023-09-14 16:55 | disposition home or self-care (01) ==
LOC: HO.LNP 16:54
PROVIDERS: Visit Provider Physician Assistant Medical
DX: J02.9 Acute pharyngitis, unspecified (principal)
CPT/HCPCS: 0241U

== ENCOUNTER 2023-10-28 11:17 | Outpatient (AMB) | payer MEDICARE, OTHER, SELFPAY ==
[2023-10-28 11:20] VITALS: BMI 40.5
--- NOTE | 2023-10-28 11:20 | A.OFFVIS_ITS ---
Vital Signs 10/28/23 11:20 Height 6 ft 1 in Weight 307 lb BMI 40.5 Intake Visit Reasons: Right Knee Injection Intake Note: Vipin is a 47 year old male who presents today for a follow up for his right knee OA, last injection 07/23/23 Allergies carbamazepine [From TEGRETOL] Allergy (Severe, Verified 10/28/23 11:23) RASH lamotrigine [From Lamictal] Adverse Reaction (Verified 10/28/23 11:23) Hallucinations HPI HPI Right Knee Injection: Details: Vipin is a 47 year old male who presents today for a follow up for his right knee OA, last injection 07/23/23 [facility] Medical History Contusion of right knee Anxiety Seasonal allergies Arthritis History of seizures History of general anesthesia Sleep apnea Morbid obesity Tachycardia Essential hypertension Sinus tachycardia Surgical History History of nephrectomy, left History of wisdom tooth extraction Hx of brain surgery (~1992) Family History Father Dementia Mother No problems noted. Social History Alcohol intake: never Patient Tobacco Use Status: Never used Tobacco Physical Exam Vital Signs: BMI result Body Mass Index 40.5 Const General: no acute distress and alert Orientation/consciousness: patient oriented x3 Resp Effort & Inspection: normal respiratory effort and able to speak in complete sentences Cardio Rate: regular rate Peripheral pulses: Peripheral pulses 2+ throughout GI Palpation (GI): Soft to palpation Skin Lesions: no lesions Rashes: no rashes Neuro General: patient oriented x3 Extrem Other: Right Knee: TTP mild medial joint line No effusion Psych Appearance: grossly normal Affect: normal affect Attitude: cooperative Office Procedures Joint Injection/Drain Joint Injection/Drain Details: Injected 1 mL of Decadron and 3 mL 1% lidocaine and 3 mL of 0.25% Marcaine. Site was prepped using aseptic technique. Patient tolerated the procedure well. Primary Site: right knee Approach Used: anterolateral Coding 88360 - Large joint Procedure code (CPT) selection complete Assessment & Plan Assessment & Plan (1) Localized osteoarthritis of right knee: Code(s): M17.11 - Unilateral primary osteoarthritis, right knee Category: Medical Plan Mr. Leger is a 47-year-old male who presents in the office today for a follow up of right knee pain. He reports he had good relief with the injection and he would like to repeat the injection while in the office today. Coding Level of Care Code Est Pt Level 3 (95580) Diagnoses Localized osteoarthritis of right knee M17.11 CPT Codes Coding - 56589 Large joint: 04588 - Large joint ([id number])
== END 2023-10-28 11:37 | disposition home or self-care (01) ==
PROVIDERS: PCP Internal Medicine; Visit Provider Orthopaedic Surgery
DX: M17.11 Unilateral primary osteoarthritis, right knee (principal)
CPT/HCPCS: 20610

== ENCOUNTER → 2023-10-28 11:17 | Outpatient (BNVA) | payer MEDICARE, OTHER, SELFPAY | PROVIDERS: PCP Internal Medicine; Visit Provider Orthopaedic Surgery | DX: M17.11 Unilateral primary osteoarthritis, right knee (principal) | CPT/HCPCS: 20610; J0665; J1100 ==

== ENCOUNTER 2023-12-24 11:24 | Outpatient (AMB) | payer MEDICARE, OTHER, SELFPAY ==
--- NOTE | 2023-12-24 11:42 | MHC.OFFVIS ---
Intake Visit Reasons: inj- RT knee Durolane injection Intake Note: Vipin is a 48 year old male who presents today for a right knee Durolane Injection Allergies carbamazepine [From TEGRETOL] Allergy (Severe, Verified 12/24/23 11:47) RASH lamotrigine [From Lamictal] Adverse Reaction (Verified 12/24/23 11:47) Hallucinations PFSH Medical History Contusion of right knee Anxiety Seasonal allergies Arthritis History of seizures History of general anesthesia Sleep apnea Morbid obesity Tachycardia Essential hypertension Sinus tachycardia Surgical History History of nephrectomy, left History of wisdom tooth extraction Hx of brain surgery (~1992) Family History Father Dementia Mother No problems noted. Social History Alcohol intake: never Patient Tobacco Use Status: Never used Tobacco Physical Exam Extrem Other: skin c/d/i Office Procedures Joint Injection/Drain Joint Injection/Drain Details: Injected Durolane. Site was prepped using aseptic technique. Patient tolerated the procedure well. Primary Site: right knee Coding - Large joint Procedure code (CPT) selection complete Assessment & Plan Assessment & Plan (1) Localized osteoarthritis of right knee: Code(s): M17.11 - Unilateral primary osteoarthritis, right knee Category: Medical Plan: Injected Durolane right knee. F/u 3 mo Coding Level of Care Code Est Pt Level 2 (97490) Diagnoses Localized osteoarthritis of right knee M17.11 CPT Codes Coding - Large joint: 96009 - Large joint ([id number])
== END 2023-12-24 11:55 | disposition home or self-care (01) ==
PROVIDERS: PCP Internal Medicine; Visit Provider Orthopaedic Surgery
DX: M17.11 Unilateral primary osteoarthritis, right knee (principal)
CPT/HCPCS: 20610

== ENCOUNTER → 2023-12-24 11:24 | Outpatient (BNVA) | payer MEDICARE, OTHER, SELFPAY | PROVIDERS: PCP Internal Medicine; Visit Provider Orthopaedic Surgery | DX: M17.11 Unilateral primary osteoarthritis, right knee (principal) | CPT/HCPCS: 20610; J7318 ==

== ENCOUNTER 2024-05-18 13:29 | Outpatient (AMB) | payer MEDICARE, OTHER, SELFPAY ==
[2024-05-18 13:40] VITALS: BMI 39.7
--- NOTE | 2024-05-18 13:40 | MHC.OFFVIS ---
Vital Signs 05/18/24 13:40 Height 6 ft 1 in Weight 301 lb BMI 39.7 Intake Visit Reasons: OV- Right knee OA, discuss repeat gel injection Intake Note: Vipin is a 49 year old male who presents today for a follow up of his right knee OA. He received a Right Knee Durolane injection on 12/24/23, he expresses that this injection was helpful and he would like to repeat injection. Allergies carbamazepine [From TEGRETOL] Allergy (Severe, Verified 05/18/24 13:41) RASH lamotrigine [From Lamictal] Adverse Reaction (Verified 05/18/24 13:41) Hallucinations HPI HPI OV- Right knee OA, discuss repeat gel injection: Details: Vipin is doing well but would like to get a repeat gel injection in his right knee. He has had success with these injections in the past and feels that they continue to be helpful. Follow up once he is approved for viscosupplementation. If block is still active HPI Comments Details: Vipin is a 49 year old male who presents today for a follow up of his right knee OA. He received a Right Knee Durolane injection on 12/24/23, he expresses that this injection was helpful and he would like to repeat injection. [facility] Medical History Contusion of right knee Anxiety Seasonal allergies Arthritis History of seizures History of general anesthesia Sleep apnea Morbid obesity Tachycardia Essential hypertension Sinus tachycardia Surgical History History of nephrectomy, left History of wisdom tooth extraction Hx of brain surgery (~1992) Family History Father Dementia Mother No problems noted. Social History Alcohol intake: never Patient Tobacco Use Status: Never used Tobacco Physical Exam Vital Signs: BMI result Body Mass Index 39.7 Extrem Other: skin c/d/i Assessment & Plan Assessment & Plan (1) Localized osteoarthritis of right knee: Code(s): M17.11 - Unilateral primary osteoarthritis, right knee Category: Medical Plan: We will repeat viscosupplementation when approved. Coding Level of Care Code Est Pt Level 2 (66186) Diagnoses Localized osteoarthritis of right knee M17.11
== END 2024-05-18 13:57 | disposition home or self-care (01) ==
PROVIDERS: PCP Internal Medicine; Visit Provider Orthopaedic Surgery
DX: M17.11 Unilateral primary osteoarthritis, right knee (principal)
CPT/HCPCS: 99212

== ENCOUNTER → 2024-05-18 13:29 | Outpatient (BNVA) | payer MEDICARE, OTHER, SELFPAY | PROVIDERS: PCP Internal Medicine; Visit Provider Orthopaedic Surgery | DX: M17.11 Unilateral primary osteoarthritis, right knee (principal) | CPT/HCPCS: 99212 ==

== ENCOUNTER 2024-06-29 13:30 | Outpatient (AMB) | payer MEDICARE, OTHER, SELFPAY ==
[2024-06-29 13:33] VITALS: BMI 39.7
--- NOTE | 2024-06-29 13:33 | A.OFFVIS_ITS ---
Vital Signs 06/29/24 13:33 Height 6 ft 1 in Weight 301 lb BMI 39.7 Intake Visit Reasons: INJ- Right Knee Durolane Injection Intake Note: Vipin is a 49 year old male who presents today for a Right Knee Durolane Injection. Injection Hx: Durolane: 12/24/23 Cortisone: 10/28/23, 07/23/23, 04/20/23 Patient also reports worsening right shoulder pain, PCP has ordered PT . He wo uld like to address this today or make another appt. Allergies carbamazepine [From TEGRETOL] Allergy (Severe, Verified 05/18/24 13:41) RASH lamotrigine [From Lamictal] Adverse Reaction (Verified 05/18/24 13:41) Hallucinations HPI HPI INJ- Right Knee Durolane Injection: Details: Vipin is a 49 year old male who presents today for a Right Knee Durolane Injection. Injection Hx: Durolane: 12/24/23 Cortisone: 10/28/23, 07/23/23, 04/20/23 Patient also reports worsening right shoulder pain, PCP has ordered PT . He would like to address this today or make another appt. [facility] Medical History Contusion of right knee Anxiety Seasonal allergies Arthritis History of seizures History of general anesthesia Sleep apnea Morbid obesity Tachycardia Essential hypertension Sinus tachycardia Surgical History History of nephrectomy, left History of wisdom tooth extraction Hx of brain surgery (~1992) Family History Father Dementia Mother No problems noted. Social History Alcohol intake: never Patient Tobacco Use Status: Never used Tobacco Physical Exam Vital Signs: BMI result Body Mass Index 39.7 Extrem Other: skin clean and dry right knee Office Procedures Joint Inj/Aspir; Non-Pain Clin Joint Injection/Drain Details: Injected Durolane. Site was prepped using aseptic technique. Patient tolerated the procedure well. Shoulders, Hips, Knees, Knee Large Joint Injection : Right Knee Coding Procedure code (CPT) selection complete Assessment & Plan Assessment & Plan (1) Localized osteoarthritis of right knee: Code(s): M17.11 - Unilateral primary osteoarthritis, right knee Category: Medical Plan: Right knee Mora injection. Follow up 3 months. Continue therapy for shoulder. If that is helpful in the see me to discuss. Coding Level of Care Code Est Pt Level 2 (54015) Diagnoses Localized osteoarthritis of right knee M17.11 CPT Codes Shoulders, Hips, Knees, - Knee Large Joint Injection : Right Knee ([id number])
== END 2024-06-29 13:47 | disposition home or self-care (01) ==
PROVIDERS: PCP Internal Medicine; Visit Provider Orthopaedic Surgery
DX: M17.11 Unilateral primary osteoarthritis, right knee (principal)
CPT/HCPCS: 20610

== ENCOUNTER → 2024-06-29 13:30 | Outpatient (BNVA) | payer MEDICARE, OTHER, SELFPAY | PROVIDERS: PCP Internal Medicine; Visit Provider Orthopaedic Surgery | DX: M17.11 Unilateral primary osteoarthritis, right knee (principal) | CPT/HCPCS: 20610; J7318 ==

== ENCOUNTER 2024-09-22 07:11 | Emergency (ER) | payer MEDICARE, OTHER, SELFPAY ==
--- NOTE | 2024-09-22 | ECG_ITS ---
Test Reason : htn Blood Pressure : */* mmHG Vent. Rate : 98 BPM Atrial Rate : 98 BPM P-R Int : 134 ms QRS Dur : 82 ms QT Int : 348 ms P-R-T Axes : 38 40 69 degrees QTcB Int : 444 ms Normal sinus rhythm Normal ECG When compared with ECG of 04-Jan-2020 16:40, Nonspecific T wave abnormality no longer evident in Inferior leads Nonspecific T wave abnormality, improved in Lateral leads Referred By: Generic ED Physician Electronically Signed By: Junior Florence
--- NOTE | ~2024-09-22 | CT_ITS ---
EXAMINATION: CT HEAD WITHOUT CONTRAST CLINICAL INFORMATION: Hypertension, headache, behind eye pressure. COMPARISON: None available. TECHNIQUE: Contiguous axial imaging was performed from the skull base to vertex without intravenous administration of contrast. This CT examination was performed using dose optimization techniques as appropriate, variously including the following: *Automated exposure control *Adjustment of mA and/or kV according to patient size (this includes techniques or standardized protocols for targeted exams where dose is matched to indication/reason for exam; i.e. extremities or head) *Use of iterative reconstruction technique FINDINGS: There is no evidence of intracranial hemorrhage or extra-axial fluid collection. There is no mass effect, or edema. No CT evidence of acute territorial infarct. Ventricles, sulci, and cisterns are normal in size and configuration for patient age. No hydrocephalus. No midline shift. Negative hyperdense MCA sign. Negative insular ribbon sign. Chronic encephalomalacia in the right frontal lobe, from prior infarct, surgery, or trauma. There are falcine calcifications. Patchy periventricular and deep white matter hypoattenuation is consistent with mild to moderate small vessel ischemic changes. Partial empty sella. Globes and orbital contents image normally. Extracranial soft tissues demonstrate thickening and nodularity of the right. In left scalp, unknown significance. Consider neurofibromatosis. Old right frontal craniotomy. Mild polypoid mucosal thickening in the dependent maxillary sinuses bilaterally. Paranasal sinuses otherwise pneumatized normally. Mastoids and tympanic space is pneumatized normally. No suspicious bony abnormalities. There are no acute fractures evident. Old right frontal craniotomy. CT/CT head/brain wo IV con IMPRESSION: 1. No acute intracranial abnormality. 2. Old right frontal craniotomy with underlying right frontal encephalomalacia. 3. Nodular extracranial scalp soft tissue thickening right greater than left. This is of uncertain etiology although can be seen with neurofibromatosis. Recommend correlating visually. Electronically signed by: Mariano Crawford MD 09/22/2024 10:52 AM EDT
[2024-09-22 07:16] VITALS: BP 166/99; PULSE 106; RESP 20; TEMP 37; O2SAT 98; BMI 42.1
[2024-09-22 07:39] LABS: MANUAL DIFF FLAG NO
[2024-09-22 07:42] LABS: Basophils Absolute Auto 0.1 X10*3/uL (0.0-0.2); Basophils Percent Auto 0.7 % (0-2); Eosinophils Absolute Auto 0.4 X10*3/uL (0.0-0.4); Eosinophils Percent Auto 4.4 % (0-4); Hematocrit 40.5 % (42.0-52.0); Hemoglobin 13.2 g/dl (14.0-18.0); Imm Gran Abs Auto 0.09 X10*3/uL (0.00-0.03); Lymphocytes Absolute Auto 3.5 X10*3/uL (1.2-4.9); Lymphocytes Percent Auto 38.3 % (20-40); Mean Corpuscular HGB Conc 32.6 g/dl (31.0-36.0); Mean Corpuscular Hemoglobin 29.7 pg (27.0-33.0); Mean Corpuscular Volume 91.2 fL (80.0-98.0); Mean Platelet Volume 10.1 fL (9.4-12.4); Monocytes Absolute Auto 0.6 X10*3/uL (0.1-1.2); Monocytes Percent Auto 6.7 % (2-11); Neutrophils Absolute Auto 4.5 x10*3/uL (2.0-8.3); Neutrophils Percent Auto 48.9 % (45-73); Platelet Count 177 X10*3/uL (160-400); Red Blood Count 4.44 X10*6/uL (4.60-5.80); Red Cell Distribution Width 13.7 % (11.0-16.0); White Blood Count 9.1 X10*3/uL (4.8-10.8)
[2024-09-22 07:56] LABS: Alanine Aminotransferase 22 U/L (0-40); Albumin Level 4.1 g/dL (3.5-5.0); Alkaline Phosphatase 43 U/L (39-117); Anion Gap 12 (12-20); Aspartate Amino Transferase 24 U/L (5-37); Bilirubin Total 0.3 mg/dL (0.0-1.0); Blood Urea Nitrogen 15 mg/dL (9-16); Calcium 9.4 mg/dL (8.4-10.2); Carbon Dioxide 29 mmol/L (22-29); Chloride 103 mmol/L (96-108); Creatinine Clr Calc Pharmacy 164.5; Estimated Glomerular Filt Rate > 60; Glucose Random 102 mg/dL (60-115); Potassium 4.3 mmol/L (3.3-5.1); Sodium 140 mmol/L (135-145); Total Protein 7.3 g/dL (6.5-8.0)
--- OUTSIDE RECORDS SUMMARY | 2024-09-22 08:16 | XMS_ITS ---
Author Organization [facility] Address [address] [place] [address] Care Team Providers Care Spout Liner Helper Name Role Phone Marciano Kenny MD Primary Care Provider Lizeth Pineda Unavailable [phone] Shaila Neves Unavailable [phone] Allergies Allergen (clinical drug ingredient) Drug/Non Drug Allergy documented on EMR Reaction Allergy Type Onset Date Status lamotrigine LaMICtal Unknown Drug Allergy Activ e carbamazepine Tegretol Unknown Drug Allergy Act marcy REASON FOR VISIT Pcp-12/2022, Ingrown Nail Medications Medication SIG (Take, Route, Frequency, Duration) Notes Start Date End Date Status Lisinopril Not-Takin g Losartan Potassium 50 MG Oral for 90 Not-Taking Cephalexin 500 MG 1 tablet Orally Twic e a day for 10 day(s) Not-Taking Voltaren 1 % as directed Externally Active Physical Therapy . . . 2-3x/week for 3- 4 weeks 01/06/2021 Not-Taking Doxycycline (Rosacea) Active Divalproex Sodium 500 MG 1 tablet Orally Twice a day BID Active Ibuprofen 800 MG 1 tablet with food o r milk as needed Orally Three times a day for 30 days PRN 12/02/2020 Not-Taking Keppra 1000 MG 1 tablet Orally ever y 12 hrs for 30 days BID Active Losartan Potassium 100 MG 1 tablet Orall y Once a day for 30 day(s) Active Clindamycin HCl PRN Acti ve Social History Tobacco Use: Social History Observation Description Date Details (start date - stop date) Never Smoker NA - NA Alcohol Screen Question Answer Notes Did you have a drink containing alcohol in the p ast year? No Points 0 Interpretation Negative Tobacco use other than smoking: Question Answer Notes Are you an other tobacco user? 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 (M19.071) Active confirmed Vital Signs Height 6ft 1in in 07/07/2024 Weight 300 lbs 07/07/2024 BMI 39.58 kg/m2 07/07/2024 Blood pressure systolic 132 mm Hg 07/07/19 25 Blood pressure diastolic 75 mm Hg 025 Encounters Encounter Location Date Provider Diagnosis [facility] [address] [address] 07/07/2024 Shaila Neves Hallux rigidus, right foot M20.21 ; Hallux rigidus of left foot M20.22 ; Metatarsalgia, right foot M77.41 and Osteoarthritis of right ankle and foot M19.071 Assessments Encounter Date Diagnosis (ICD Code) Assessment Notes Treatment Notes Treatment Clinical Notes Section Notes 07/07/2024 Hallux rigidus, right foot (ICD-10 - M20.21) 07/07/2024 Hallux rigidus of left foot (ICD-10 - M20.22) 07/07/2024 Metatarsalgia, right foot (ICD-10 - M77.41) 07/07/2024 Osteoarthritis of right ankle and foot (ICD-10 - M19.071) Plan Of Treatment Pending Test Test Name Order Date X ray : Foot, left 3V 07/07/2024 Next Appt Details Follow Up: prn, Reason: Progress Notes * Vipin LEGER JR FDOB:[birth year] (49 yo M)Acc No.[id number]:07/07/2024 Progress Note Patient:?Vipin LEGER JR Provider:?Shaila Neves DPM :1975???Age:49 Y???Sex:Male Todd e:07/07/2024 Address:[address] [place] [address] [id number] Pcp:Marciano Kenny MD Subjective: * Chief Complaints: * ???Pcp-12/2022Ingrown Nail * HPI: ???Foot Pain:?Nature:?aching.?Location?Top, Great toe joint B/L- previously just right 1st MPJ.?Aggrevated:?walking.?Treatments:?rest.?Quality/Severity?08/21.? * ROS:?General/Constitutional:?Nausea?denies.?Vomiting?denies.?Hunger Thirst?denies.?Loss appetite?denies.?Chills?denies.?Fatigue?denies.?Fever?denies.?Night Sweats?denies.?Unexplained weight loss?denies.?Unexplained weight gain?denies.?HEENTM:?Dentures?denies.?Dizziness?denies.?Glasses/contacts?denies.?Retinopathy?de nies.?Blurred/double vision?denies.?TMJ?denies.?Discharge/drainage?denies.?Implants?denies.?Sore throat?denies.?Dental implants?denies.?Hard of hearing ?denies.?Difficulty chewing/swallowing/speaking?denies.?Nose bleeds?denies.?Sore mouth?denies.?Respiratory:?On Oxygen?denies.?Pneumonia/pleurisy?denies.?Bronchitis?denies.?Emphysema?denies.?C oughing?denies.?Cough blood?denies.?Shortness of breath?denies.?Wheezing?denies.?Cardiovascular:?Pacemaker?denies.?MVP?denies.?WPW?denies.?CHF?denies.?Heart attack?denies.?Septal defect?denies.?Rapid beat?denies.?Chest pain ?denies.?Atrial Fib.?denies.?Murmur/Palpitations?denies.?Gastrointestinal:?Hemorrhoids?denies.?Stomach/Abdominal pain?denies.?Dark blood stool?denies.?Irritable bowel ?denies.?Constipation?denies.?Diarrhea?denies.?Hematology:?Swelling?denies.?Clots?denies.?Varicose Veins?denies.?Bruising?denies.?Bleeding problem?denies.?Genitourinary:?Blood urine?denies.?Frequent/Painfu/urination/bladder control?denies.?Kidney stones?denies.?Infection (UTI)?denies.?Nephropathy?denies.?sex trans dis (STD)?denies.?Prostate?denies.?Musculoskeletal:?Hammertoes?denies.?Bunions?denies.?Back Pain?denies.?Muscle Cramps/ Resting?denies.?Muscle cramps / walking?denies.?Generalized aches and pains?denies.?Weakness?denies.?Integ.:?Liu?denies.?Scars?denies.?Corns/calluses?denies.?Ingrown nails?denies.?Painful nails?denies.?Open Sores?denies.?Rashes?denies.?Neurologic:?Difficulty sleeping?denies.?Brain disorder?denies.?Numbness?denies.?Balance trouble?denies.?Confusion?denies.?Fainting/blackouts?denies.?Tingling?denies.?Tr emors?denies.? * Medical History:? * Surgical History:?brain surg saeid 06/30/91removal of malignent kidney tumor- [facility] -6 days 07/26/2018[facility] 12/12/20 * Hospitalization/Major Diagno stic Procedure:?[facility] - Ear infection ortisone shot right knee 02/03/2022 * Family History:?Mother: yoko trotter, foot problems.?Father: alive, diagnosed with Unspecified essential hypertension.?Maternal Grand Mother: unknown, diagnosed with Diabetic - NIDDM, Unspecified cerebral artery occlusion with cerebral infarction.?Maternal Grand Father: unknown, diagnosed with Diabetic - NIDDM.?Paternal aunt: unknown, diagnosed with Family history of arthritis.? * Social History:?Tobacco Use:?Tobacco use other than smoking?Are you an other tobacco user??No ?Tobacco Control (Standard)?Tobacco use:?Nonsmoker ?Additional Findings: Tobacco non-user?Current nonsmoker ???Drugs/Alcohol:?Drugs?Have you used drugs other than those for medical reasons in the past 12 months??No ?Alcohol Screen?Did you have a drink containing alcohol in the past year??No ?Points?0 ?Interpretation?Negative ???Miscellaneous:?Caffeine: yes, frequency:. ?Children: no. ?Exercise: no. ?Marital status: single. ?Occupation: Unemployed. * Medications:?TakingClindamyc in HCl , Notes to Pharmacist: PRNDoxycycline (Rosacea) Divalproex Sodium 500 MG Tablet Delayed Release 1 tablet Orally Twice a day , Notes to Pharmacist: BIDKeppra 1000 MG Tablet 1 tablet Orally every 12 hrs , Notes to Pharmacist: BIDLosartan Potassium 100 MG Tablet 1 tablet Orally Once a day Voltaren 1 % Gel as directed Externally Taking Clindamycin HCl , Notes to Pharmacist: PRNTaking Doxycycline (Rosacea) Taking Divalproex Sodium 500 MG Tablet Delayed Release 1 tablet Orally Twice a day , Notes to Pharmacist: BIDTaking Keppra 1000 MG Tablet 1 tablet Orally every 12 hrs , Notes to Pharmacist: BIDTaking Losartan Potassium 100 MG Tablet 1 tablet Orally Once a day Taking Voltaren 1 % Gel as directed Externally Not-Taking/PRNIbuprofen 800 MG Tablet 1 tablet with food or milk as needed Orally Three times a day , Notes to Pharmacist: PRNPhysical Therapy . . . . 2-3x/week Lisinopril Losartan Potassium 50 MG Tablet Oral Cephalexin 500 MG Tablet 1 tablet Orally Twice a day Medication List reviewed and reconciled with the patientNot-Taking/PRN Ibuprofen 800 MG Tablet 1 tablet with food or milk as needed Orally Three times a day , Notes to Pharmacist: PRNNot-Taking/PRN Physical Therapy . . . . 2-3x/week Not-Taking/PRN Lisinopril Not-Taking/PRN Losartan Potassium 50 MG Tablet Oral Not-Taking/PRN Cephalexin 500 MG Tablet 1 tablet Orally Twice a day Medication List reviewed and reconciled with the patient * Allergies:?TegretolLaMICtaly es[Allergies Verified] Objective: * Vitals:?Ht: 6ft 1in, Wt:300, BMI:39.58, Shoe size: 13, BP:132/75mm Hg, Ht-cm: 185.42 cm, Wt-k.08 kg. * Examination: ???General Examination: ?GENERAL APPEARANCE:?Reveals a pleasant, alert, well nourished, well- developed, well hydrated individual, who demonstrates proper attention to hygiene/body habitus, and is in no acute distress.?ORIENTED:?person,place, and time.?Neurological: ?SENSORY:?Neurological exam reveals intact sensorium, pain sensation normal, vibration sensation intact, pinprick sensation is normal in the lower extremities, Pt denies, anesthesia, burning, paresthesia, tingling, B/L.?Vascular: ?DP PULSES (B):?2/4, B/L.?PT PULSES (B):?2/4, B/L.?CAPILLARY FILL TIME:?3 secs. per digit, B/L.?TROPHIC CONDITION-TEXTURE/ELASTICITY/TURGOR/HAIR GROWTH (B):?normal, B/L.?TEMPERTURE GRADIENT (C):?warm to cool, proximal to distal, B/L.?PIGMENTATION:?normal, B/L.?EDEMA (C):? 1/4, Right, Feet.?TELANGECTASIA:?absent.?VARICOSITIES:?absent.?Dermatologic: ?SKIN FINDINGS:?Skin exam reveals normal color, texture, elasticity, and turgor. There are no masses, nor excrescences. The interspaces are clear, B/L.?Orthopedic: ?MUSCLE STRENGTH:?5/5 all groups in a symmetrical fashion , B/L.?GAIT ABNORMALITY:?pronated, abducted, mildly antalgic, B/L.?BUNION:?Dorsally prominent 1st MPJ, significantly limited range of motion of first MPJ with crepitus, no tenderness with range of motion, no tenderness with palpation of 1st MPJ RIGHT 1st MPJ left- mild dorsal prominence, mild limited range of motion without creptius, no tenderness with range of motioun.?BIOMECHANICAL EXAM:?RCSP: 5 degree valgus B/L NCSP: 3 degree valgus B/L AJ DF Knee extended L 0 deg AJ DF Knee extended R 5 deg AJ DF Knee flexed R 5 deg AJ DF Knee flexed L? 5 deg .?X-Rays - IMAGING REPORT: ?Clinical Indication(s):? Evaluate Biomechanical Deformity.?Views:?3 views of Foot, LEFT.?Findings:?normal bone and soft tissue density consistent for patients age and sex.?HAV:?there is asymmetrical narrowing of the 1st MPJ joint space, ?squaring of the 1st MTH, dorsal exostosis appreciated to first MTH.? * Physical Examination:?L3000 Custom Fabricated OT:?Custom Orthotic?Custom Fabricated Orthoses.? Assessment: * Assessment: 1.?Hallux rigidus, right aaron t - M20.21 (Primary)???Specify :Chronic problem, Stable (1=3,2=4)???2.?Hallux rigidus of left foot - M20.22???Specify :Acute problem, Complicated w/ Multiple Tx Options(4) Dx New problem, Prognosis Uncertain (4)???3.?Metatarsalgia, right foot - M77.41???4.?Osteoarthritis of right ankle and foot - M19.071??? Plan: * Treatment: * Imaging:? * ?Imaging: X ray : Foot, left 3V * Procedure Codes:?19961 X-RAY EXAM OF LEFT FOOT 3V, Modifiers: 26 , [id number] Prescription Custom Fabricated Foot insert, Units: 2.00 , Modifiers: XS * Preventive Medicine:? ??Counseling:?Discussion:?-14: Office or other outpatient visit for the evaluation and management of an established patient, which required a medically appropriate history and/or examination and MODERATE level of DECISION MAKING for: 1 OR MORE CHRONIC PROBLEM(S) THATS WORSENING, 2 STABLE CHRONIC PROBLEMS, A NEWLY DIAGNOSED PROBLEM WITH UNCERTAIN PROGNOSIS, AN ACUTE COMPLICATED INJURY WITH MULTIPLE TREATMENT OPTIONS, OR AN ACUTE PROBLEM WITH ACCOMPANYING SYSTEMIC SYMPTOMS, THAT POSE(S) A MODERATE RISK OF MORBIDITY. THIS CONDITION MAY ALSO INCLUDE RX DRUG MANAGEMENT, OR A DECISON FOR MINOR SURGERY. The visit on the day of the encounter encompassed interpreting the data and educating the patient as to the nature of their condition, treatment options available according to their individual PMH, meds, allergies, and overall health/living conditions, as well as any potential risks or complications that may occur from a failure to adhere to, and participate in, the recommended course of therapy. The discussion included a complete verbal, and/or written explanation of the examination results, any x-rays taken, the proposed diagnosis, and outline of the treatment plan. A schedule for future care needs was also explained. The patient verbalized an understanding of the instructions at this time and agreed to be an active participant in their treatment. If the patient should think of any questions or concerns after the visit, I have encouraged the patient to call the office.?Arthritis:?The patient was counseled on the various etiologies for their Arthritis including genetic, history of injury or trauma, abnormal foot biomechanics leading to excessive joint wear, and use/overuse. We discussed the various treatment options from no treatment, to topical analgesics such as Biofreeze gel, Aspercream, Voltaren gel, Lidoderm patches, CBD oils, THC creams, and Custom-compounded topical cream preparations to natural oral products such as Glucosamine Sulfate/Chondroitin/MSM/Collegen to analgesic Tylenol, to anti-inflammatory medications such as Ibuprofen/Naproxen, and the use of oral steroids if needed. Cardiac, Kidney, and GI issues were discussed RE: potential complications of oral anti-inflammatories. We discussed several other treatment options consisting of accom shoes, supportive innersoles, AFO bracing/support, cortisone injection therapy, and surgical resection of the arthritic joint(s) or fusion reconstruction if necessary. We discussed the advantages and disadvantages of conservative (vs) surgical treamtents including pain relief, improved function/activities of daily life, return to exercise to failure, expense, systemic complications, infection, [id number], prolongued postop course. Patient questions re: the various treatment options available, their successes and potential failures, and remote computer terminal operator effects were discussed and the answers were verbally confirmed understood.?Digital Surgery:?Digital surgery was discussed with the patient, including the risks of surgery(below), vs not having surgery (persistent pain, deformity, risk for skin ulceration/infection, loss of toe), the potential surg complications, the anesthesia, and the usual post-op course. No guarentees were given. We discussed the potential procedure complications including, but not limited to: pain, swelling, bleeding, scarring, numbness, infection, delayed/non healing, floppy/unstable/shorthened toe, recurrence, failure of the procedure, overcorrection leading to plantarflexed/downward positioned toe, recurrence, need for further surgery, as well as the possibility for loss of the toe itself. We discussed the use of local anesthesia, and the usual post-op course for healing. No guarentees were given. The patient verbally indicated a full understanding of the above conversation, and any other of their questions were answered to their satisfaction. Alternatives to the procedure were also discussed, including conservative care. I also discussed the usual post-operative course and gave no guarantees regarding outcome.?Discussion for Bunion sx:?Discussed and reviewed the X-rays with the patient. We discussed how the findings relate to the patients symptoms/complaints. Answered any and all questions..?X-rays:?Discussed and reviewed the X-rays with the patient. We discussed how the findings relate to the patients symptoms/complaints. Answered any and all questions..? * Follow Up:?prn * Images: * Sign off status: Completed true * Provider:?Shaila Neves DPM Date:?0 07/07/2024 Generated for Kristy shipley/Narda/Mc on:?09/22/2024 08:16 AM EDT History and Physical Notes * HPI (History of Present Illness) Category Sub-Category Detail Notes Category Not es Foot Pain Aggrevated: walking Nature: aching Treatments: rest Quality/Severity 3/10 Location Top, Great toe joint B/L- previously just right 1st MPJ Physical Examination Category Sub-Category Detail Notes Section Note s L3000 Custom Fabricated OT Custom Orthotic Custom Fabricated Orthoses Examination Category Sub-Category Detail Notes Category Not es Neurological SENSORY: Neurological exa m reveals intact sensorium, pain sensation normal, vibration sensation intact, pinprick sensation is normal in the lower extremities, Pt denies, anesthesia, burning, paresthesia, tingling, B/L Dermatologic SKIN FINDINGS: Skin exam reveal s normal color, texture, elasticity, and turgor. There are no masses, nor excrescences. The interspaces are clear, B/L Orthopedic GAIT ABNORMALITY: pronated, abdu cted, mildly antalgic, B/L BUNION: Dorsally prominent 1 st MPJ, significantly limited range of motion of first MPJ with crepitus, no tenderness with range of motion, no tenderness with palpation of 1st MPJ [id number] MPJ left- mild dorsal prominence, mild limited range of motion without creptius, no tenderness with range of motioun MUSCLE STRENGTH: 5/5 all groups in a symmetrical fashion , B/L BIOMECHANICAL EXAM: RCSP: 5 degree valgu s B/L NCSP: 3 degree valgus B/L AJ DF Knee extended L 0 deg AJ DF Knee extended R 5 deg AJ DF Knee flexed R 5 deg AJ DF Knee flexed L 5 deg General Examination GENERAL APPEARANCE: Reveals a pleasant, alert, well nourished, well-developed, well hydrated individual, who demonstrates proper attention to hygiene/body habitus, and is in no acute distress ORIENTED: person,place, and ti me Vascular DP PULSES (B): 2/4, B/L PT PULSES (B): 2/4, B/L CAPILLARY FILL TIME: 3 secs. per digit, B/L TEMPERTURE GRADIENT (C): warm to cool, p roximal to distal, B/L TROPHIC CONDITION-TEXTURE/ELASTICITY/TURGOR/HAIR GROWTH (B): normal, B/L EDEMA (C): 1/, Right, Feet TELANGECTASIA: absent VARICOSITIES: absent PIGMENTATION: normal, B/L X-Rays - IMAGING REPORT Findings: normal b one and soft tissue density consistent for patients age and sex HAV: there is asymmetrica l narrowing of the 1st MPJ joint space, squaring of the 1st MTH, dorsal exostosis appreciated to first MTH Views: 3 views of Foot, LEF T Clinical Indication(s): Evaluate Biomech anical Deformity
--- OUTSIDE RECORDS SUMMARY | 2024-09-22 08:17 | XMS_ITS | Patient Health Record ---
[facility] Address [address] [place] [address] Care Team Providers Care Table Assembler Metal Name Role Phone Marciano Kenny MD Primary Care Provider UnavailLizeth Zeng Unavailable [phone] Sal Fine Unavailable [phone] Shaila Neves Unavailable [phone] Allergies Allergen (clinical drug ingredient) Drug/Non Drug Allergy documented on EMR Reaction Allergy Type Onset Date Status lamotrigine LaMICtal Unknown Drug Allergy Activ e carbamazepine Tegretol Unknown Drug Allergy Act marcy Reason For Referral No Information Medications Medication SIG (Take, Route, Frequency, Duration) Notes Start Date End Date Status Cephalexin 500 MG 1 tablet Orally Twic e a day for 10 day(s) Not-Taking Keppra 1000 MG 1 tablet Orally ever y 12 hrs for 30 days BID Active Divalproex Sodium 500 MG 3 tablet Orally Twice a day BID Active Doxycycline (Rosacea) Active Clindamycin HCl PRN Acti ve Physical Therapy . . . 2-3x/week for 3- 4 weeks 01/06/2021 Not-Taking Ibuprofen 800 MG 1 tablet with food o r milk as needed Orally Three times a day for 30 days PRN 12/02/2020 Not-Taking Voltaren 1 % as directed Externally Active Losartan Potassium 100 MG 1 tablet Orall y Once a day for 30 day(s) Active Ibuprofen Active Flonase Active Losartan Potassium 50 MG Oral for 90 Not-Taking Lisinopril Not-Takin g Immunizations Vaccine Route Administration Date Status Comme nts COVID-19 Pfizer BioNTech Vaccine Unknown 08/26/2020 Administered 1st 08/05/2020 2nd 08/26/2020 Influenza Unknown 03/14/2021 Administered Social History Tobacco Use: Social History Observation Description Date Details (start date - stop date) Never Smoker NA - NA Tobacco use other than smoking: Question Answer Notes Are you an other tobacco user? No Tobacco Control (Standard) Question Answer Notes Tobacco use: Nonsmoker Additional Findings: Tobacco non-user Current no nsmoker AUDIT-C (Standard) Question Answer Notes Did you have a drink containing alcohol in the p ast year? No Points 0 Interpretation Negative Problems Problem Type SNOMED Code ICD Code Onset Dates Problem Status W/U Status Risk Notes Problem Gout (47430975) Gout, unspecifie d (M10.9) Active confirmed Problem Acquired hallux rigidus (3731265) Hallux rigidus, right foot (M20.21) Active confirmed Problem 352381709 Hallux rigidus o f left foot (M20.22) Active confirmed Problem 69788873 Osteoarthritis o f right ankle and foot (M19.071) Active confirmed Problem Localized, primary osteoarthritis of the ankle and/or foot (477517374) -Arthritis of foot, right (M19.071) Active confirmed Vital Signs Blood pressure diastolic 81 mm Hg 08/15/2024 Height 6ft 1in in 08/15/2024 Blood pressure systolic 120 mm Hg 08/15/2024 Weight 300 lbs 08/15/2024 BMI 39.58 kg/m2 08/15/2024 Encounters Encounter Location Date [facility] [address] [place] [address] 02/10/2024 Sal Fine Pain in right foot M79.671 ; Metatarsalgia, right foot M77.41 and Hallux rigidus, right foot M20.[address] [facility] [address] 04/07/2024 Shaila Neves Ingrown nail L60.0 and Hallux rigidus, right foot M20.21 [facility] [address] 07/07/2024 Shaila Neves Hallux rigidus, right foot M20.21 ; Hallux rigidus of left foot M20.22 ; Metatarsalgia, right foot M77.41 and Osteoarthritis of right ankle and foot M19.071 [facility] [address] [place] [address] 08/15/2024 Lizeth Olguin Hallux rigidus, righ t foot M20.21 ; Metatarsalgia, right foot M77.41 ; Osteoarthritis of right ankle and foot M19.071 and Pain in right foot M79.671 [facility] [address] [facility] [address] [place] [address] 07/25/2024 Shaila Neves [facility] [address] [place] [address] 05/31/2024 Shaila Neves Assessments Encounter Date Diagnosis (ICD Code) Assessment Notes Treatment Notes Treatment Clinical Notes Section Notes 02/10/2024 Pain in right foot (ICD-10 - M79.671) 02/10/2024 Metatarsalgia, right foot (ICD-10 - M77.41) 04/07/2024 Hallux rigidus, right foot (ICD-10 - M20.21) 04/07/2024 Ingrown nail (ICD-10 - L60.0) 07/07/2024 Hallux rigidus, right foot (ICD-10 - M20.21) 07/07/2024 Hallux rigidus of left foot (ICD-10 - M20.22) 08/15/2024 Metatarsalgia, right foot (ICD-10 - M77.41) 08/15/2024 Hallux rigidus, right foot (ICD-10 - M20.21) 08/15/2024 Osteoarthritis of right ankle and foot (ICD-10 - M19.071) 07/07/2024 Metatarsalgia, right foot (ICD-10 - M77.41) 02/10/2024 Hallux rigidus, right foot (ICD-10 - M20.21) 07/07/2024 Osteoarthritis of right ankle and foot (ICD-10 - M19.071) 08/15/2024 Pain in right foot (ICD-10 - M79.671) Plan Of Treatment Pending Test Test Name Order Date *Uric Acid, Serum 03/31/2023 *Sedimentation Rate-Westergren X ray : Foot, left 3V 07/07/2024 X ray : Foot, left 3V 08/07/2020 X ray : Foot, right 3V 10/31/2020 X ray : Foot, right 3V 12/18/2020 X ray : Foot, right 3V 01/01/2021 X ray : Foot, right 3V 08/27/2021 X ray : Foot, right 3V 08/15/2024 X ray : Foot, right 3V 06/27/2020 X ray : Foot, right 3V 02/10/2024 [id number]-Ktjylarq Plate 12/31/2017 03957 I&D ABSCESS- SIMPLE,SINGLE 019 , [id number]-BOEIP/INJECT, JOINT/BURSA 0 06/27/2020, P2448-FHEBE/INJECT, JOINT/BURSA 0 10/31/2020 73545- Nail Unit Biopsy 12/31/2017 Insurance Providers Payer Name Payer Address Payer Phone Subscriber Number Group Number Insured Name Patient Relationship to Insured Coverage Start Date Coverage End Date Medicare National [employer] [address] [place] [address] [id number] Vipin Leger Jr Self - patient is the insured [employer] [address] [place] [address] [id number] Vipin Leger Jr Self - patient is the insured Medical (General) History Medical History History ICD Code Anxiety Chicken pox Epilepsy Sleep apnea Surgical History Surgery Date(Month/Year) brain surgery 06/30/91 removal of malignent kidney tumor- [facility] -6 days 07/26/2018 Grace Moreno 12/12/20 Hospitalization History Reason Date(Month/Year) Cortisone shot right knee 02/03/2022 [facility] - Ear infection 2020
--- OUTSIDE RECORDS SUMMARY | 2024-09-22 08:17 | XMS_ITS | Encounter Summary ---
Author Organization [facility] Address [address] [place] [address] Care Team Providers Care Order Planner Name Role Phone Marciano Kenny MD Primary Care Provider [phone] Encounter Details Date Type Department Care Team (Late st Contact Info) Description 08/21/2024 Scanned Document [place] [address] Mara Zamora [address] [place] [address] Social History Tobacco Use Types Packs/Day Years Used Date Smoking Tobacco: Never Assessed Sex and Gender Information Value Date Recorded Sex Assigned at Male 09/03/2024 11:16 PM EDT Gender Identity Male 09/03/2024 11:16 PM EDT Sexual Orientation Not on file documented as of this encounter Plan of Treatment Upcoming Encounters Date Type Department Care Team (Late st Contact Info) Description 10/03/2024 1:45 PM EDT [place] [address] Ty Fernandez MD [address] [place] [address] documented as of this encounter Visit Diagnoses Not on filedocumented in this encounter Care Teams Order Planner Relationship Specialty Start Date End Date Marciano Kenny MD [address] [place] [address] PCP - General Family Medicine 07/18/24 documented as of this encounter
--- OUTSIDE RECORDS SUMMARY | 2024-09-22 08:17 | XMS_ITS ---
Author Name [facility] Organization Unknown History of Medication Use Medication Directions Dispensed Refills Start Date End Date Stat us SUPPLY DME MISC Shoe Wear Evaluation Dx: Heel spurs, Metatarsalgia, Pes plano valgus [facility] [address] [address] 08/07/2024 active Problems Problem Status Onset Date Problem Type Date of Resoluti on Source Heel pain, bilateral active EncounterDiagnosisAct CCT Encounters Encounter Type Encounter Reason Primary Diagnosis Location Date Ambulatory [facility] 09/05/2024 Ambulatory [facility] 07/18/2024 Ambulatory Pain in right foot Pain in right foot [facility] 07/18/2024 Care Team Organization Name Specialty Phone Email Start Date End Da te [facility] 08/23/2024 [facility] 07/19/2024 [facility] 07/05/2024
--- OUTSIDE RECORDS SUMMARY | 2024-09-22 08:17 | XMS_ITS | Patient Health Record ---
Author Organization [facility] Address [address] [place] [address] Care Team Providers Care Radio Journalist Name Role Phone MONICA BIRMINGHAM Unavailable [phone] REASON FOR REFERRAL No Information PLAN OF TREATMENT No Information Insurance Providers Payer Name Payer Address Payer Phone Subscriber Number Group Number Insured Name Patient Relationship to Insured Coverage Start Date Coverage End Date Medicare Part B J14 [address] Shavonne shaun osuna [id number] Vipin Leger Self - patient is the insured [facility] Indemnity Plan [employer] [facility] [address] [place] [address] [id number] Vipin Leger Self - patient is the insured
--- OUTSIDE RECORDS SUMMARY | 2024-09-22 08:17 | XMS_ITS ---
Author Organization [facility] Address [address] [place] [address] Care Team Providers Care Pattern Chart Writer Name Role Phone Marciano Kenny MD Primary Care Provider Lizeth Pineda Unavailable [phone] Shaila Neves Unavailable [phone] REASON FOR VISIT [facility] Encounters Encounter Location Date Provider Diagnosis [facility] [employer] [facility] [address] 07/25/2024 Shaila Neves Plan Of Treatment No Information Progress Notes * Vipin LEGER JR FDOB:[birth year] (49 yo M)Acc No.[id number]:07/25/2024 Patient:?Vipin LEGER JR :1975???Age:49 Y???Sex:Male Address:[address] [place] [address], [address] * * Date:?
--- OUTSIDE RECORDS SUMMARY | 2024-09-22 08:17 | XMS_ITS | Clinical Summary ---
Author Organization [facility] Address [address] [place] [address] Care Team Providers Care Airfield Manager Name Role Phone Marciano Kenny MD Primary Care Provider [phone] Allergies Active Allergy Reactions Criticality Noted Date Comments Lamotrigine Delirium/Confusion/Psychosis Medium 2024 Carbamazepine Hives Medium 07/18/2024 Medications Medication Sig Dispensed Refills Start Date End Date Status SUPPLY DME MISCIndications:Heel pain, bilateral Shoe Wear Evaluation Dx: Heel spurs, Metatarsalgia, Pes plano valgus [facility] [address] [address] 1 each 08/07/2024 Active Encounters Date Type Department Care Team Description 08/21/2024 Scanned Document [facility] [address] [address] Mara Zamora 08/21/2024 Orders Only [facility] [address] [address] Ty Fernandez MD 07/20/2024 Documentation [facility] [address] [address] Ty Fernandez MD 07/18/2024 3:20 PM EST Ancillary Procedure [facility] [address] [address] 07/18/2024 3:00 PM EST Consult [facility] [address] [address] Ty Fernandez MD Heel pain, bilateral (Primary Dx) from Last 3 Months Social History Tobacco Use Types Packs/Day Years Used Date Smoking Tobacco: Never Assessed Sex and Gender Information Value Date Recorded Sex Assigned at Male 09/03/2024 11:16 PM EDT Gender Identity Male 09/03/2024 11:16 PM EDT Sexual Orientation Not on file Plan of Treatment Upcoming Encounters Date Type Department Care Team ([facility] st Contact Info) Description 10/03/2024 1:45 PM EDT Office Visit [facility] [address] Ty Fernandez MD [address] [place] [address] Health Maintenance Due Date Last Done Comments Hepatitis C Virus Screening 1975 HIV Screening 1988 DTaP/Tdap/Td Vaccines (1 - Tdap) 1994 Hepatitis B Vaccines (1 of 3 - 19+ 3-dose series) 1994 Colonoscopy 2020 Influenza Vaccine 01/13/2024 05/13/2023, , 03/14/2021, Additional history exists COVID-19 Vaccine ( season) 2024 05/29/2021, 08/26/2020, 08/05/2020 Pneumococcal Vaccine: Pediatric (0-5 Years) and At-Risk Patients (6 to 49 Years) Aged Out No longer eligible based on patient's age to complete this topic Procedures Procedure Name Priority Date/Time Associated Diagnosis Comments XR ANKLE 2 VIEWS-BILATERAL Routine 07/18/2024 3:31 PM EST Heel pain, bilateral XR FOOT 3+ VIEWS-BILATERAL Routine 07/18/2024 3:31 PM EST Heel pain, bilateral from Last 3 Months Results * XR Foot 3+ views-Bilateral (07/18/2024 3:31 PM EST) Narrative [facility] - 07/18/2024 3:31 PM EST This exam was performed in office at [facility] and images reviewed by orthopedic provider. ??Any findings are documented within ambulatory encounter note on date of service. Ty Fernandez MD IMG DIAGNOSTIC IMAGI NG ORDERABLES [facility] * XR Ankle 2 views-Bilateral (07/18/2024 3:31 PM EST) Narrative [facility] - 07/18/2024 3:31 PM EST This exam was performed in office at [facility] and images reviewed by orthopedic provider. ??Any findings are documented within ambulatory encounter note on date of service. Ty YUG DIAGNOSTIC IMAGI NG ORDERABLES OA from Last 3 Months Care Teams Airfield Manager Relationship Specialty Start Date End Date Marciano Kenny MD [address] [place] [address] PCP - General Family Medicine 07/18/24
--- OUTSIDE RECORDS SUMMARY | 2024-09-22 08:17 | XMS_ITS ---
Author Organization [facility] Address [address] [address] Care Team Providers Care Warp Clamper Name Role Phone Marciano Kenny MD Primary Care Provider Lizeth Pineda Unavailable [phone] Allergies Allergen (clinical drug ingredient) Drug/Non Drug Allergy documented on EMR Reaction Allergy Type Onset Date Status lamotrigine LaMICtal Unknown Drug Allergy Activ e carbamazepine Tegretol Unknown Drug Allergy Act marcy REASON FOR VISIT Foot pain Medications Medication SIG (Take, Route, Frequency, Duration) Notes Start Date End Date Status Cephalexin 500 MG 1 tablet Orally Twic e a day for 10 day(s) Not-Taking Physical Therapy . . . 2-3x/week for 3- 4 weeks 01/06/2021 Not-Taking Ibuprofen 800 MG 1 tablet with food o r milk as needed Orally Three times a day for 30 days PRN 12/02/2020 Not-Taking Losartan Potassium 50 MG Oral for 90 Not-Taking Lisinopril Not-Takin g Keppra 1000 MG 1 tablet Orally ever y 12 hrs for 30 days BID Active Divalproex Sodium 500 MG 3 tablet Orally Twice a day BID Active Doxycycline (Rosacea) Active Voltaren 1 % as directed Externally Active Losartan Potassium 100 MG 1 tablet Orall y Once a day for 30 day(s) Active Clindamycin HCl PRN Acti ve Ibuprofen Active Flonase Active Social History Tobacco Use: Social History Observation [...] ast year? No Points 0 Interpretation Negative Vital Signs Height 6ft 1in in 08/15/2024 Weight 300 lbs 08/15/2024 BMI 39.58 kg/m2 08/15/2024 Blood pressure systolic 120 mm Hg 08/16/19 25 Blood pressure diastolic 81 mm Hg 025 Encounters Encounter Location Date Provider Diagnosis [facility] [address] [place] [address] 08/15/2024 Lizeth Olguin Hallux rigidus, righ t foot M20.21 ; Metatarsalgia, right foot M77.41 ; Osteoarthritis of right ankle and foot M19.071 and Pain in right foot M79.671 Assessments Encounter Date Diagnosis (ICD Code) Assessment Notes Treatment Notes Treatment Clinical Notes Section Notes 08/15/2024 Hallux rigidus, right foot (ICD-10 - M20.21) 08/15/2024 Metatarsalgia, right foot (ICD-10 - M77.41) 08/15/2024 Osteoarthritis of right ankle and foot (ICD-10 - M19.071) 08/15/2024 Pain in right foot (ICD-10 - M79.671) Plan Of Treatment Pending Test Test Name Order Date X ray : Foot, right 3V 08/15/2024 Next Appt Details Follow Up: prn, Reason: Progress Notes * Vipin LEGER JR FDOB:[birth year] (49 yo M)Acc No.[id number]:08/15/2024 Progress Note Patient:?ARSENVipin NEW JR Erick Provider:?Lizeth Olguin DPM :1975???Age:49 Y???Sex:Male Todd e:08/15/2024 Address:[address] [place], [place] [id number] Pcp:Marciano Kenny MD Subjective: * Chief Complaints: * ???Foot pain * HPI: ???Foot Pain:?Nature:?aching, tenderness, throbbing.?Location?Great toe joint , Right.?Duration:?several months.?Onset/Cause:?gradual, denies trauma.?Course:?worse.?Aggrevated:?walking, any pressure, standing, shoes.?Treatments:?rest, change in shoes, [place] Bunionectomy 2020.? * ROS:?General/Constitutional:?Nausea?denies.?Vomiting?denies.?Hunger Thirst?denies.?Loss appetite?denies.?Chills?denies.?Fatigue?denies.?Fever?denies.?Night Sweats?denies.?Unexplained weight loss?denies.?Unexplained weight gain?denies.?HEENTM:?Dentures?denies.?Dizziness?denies.?Glasses/contacts?denies.?Retinopathy?de nies.?Blurred/double vision?denies.?TMJ?denies.?Discharge/drainage?denies.?Implants?denies.?Sore throat?denies.?Dental implants?denies.?Hard of hearing ?denies.?Difficulty chewing/swallowing/speaking?denies.?Nose bleeds?denies.?Sore mouth?denies.?Respiratory:?On Oxygen?denies.?Pneumonia/pleurisy?denies.?Bronchitis?denies.?Emphysema?denies.?C oughing?denies.?Cough blood?denies.?Shortness of breath?denies.?Wheezing?denies.?Cardiovascular:?Pacemaker?denies.?MVP?denies.?WPW?denies.?CHF?denies.?Heart attack?denies.?Septal defect?denies.?Rapid beat?denies.?Chest pain ?denies.?Atrial Fib.?denies.?Murmur/Palpitations?denies.?Gastrointestinal:?Hemorrhoids?denies.?Stomach/Abdominal pain?denies.?Dark blood stool?denies.?Irritable bowel ?denies.?Constipation?denies.?Diarrhea?denies.?Hematology:?Swelling?denies.?Clots?denies.?Varicose Veins?denies.?Bruising?denies.?Bleeding problem?denies.?Genitourinary:?Blood urine?denies.?Frequent/Painfu/urination/bladder control?denies.?Kidney stones?denies.?Infection (UTI)?denies.?Nephropathy?denies.?sex trans dis (STD)?denies.?Prostate?denies.?Musculoskeletal:?Hammertoes?denies.?Bunions?denies.?Back Pain?denies.?Muscle Cramps/ Resting?denies.?Muscle cramps / walking?denies.?Generalized aches and pains?admits.?Weakness?denies.?Integ.:?Liu?denies.?Scars?denies.?Corns/calluses?denies.?Ingrown nails?denies.?Painful nails?denies.?Open Sores?denies.?Rashes?denies.?Neurologic:?Difficulty sleeping?denies.?Brain disorder?denies.?Numbness?denies.?Balance trouble?denies.?Confusion?denies.?Fainting/blackouts?denies.?Tingling?denies.?Tr emors?denies.? * Medical History:? * Surgical History:?brain surg saeid 06/30/91removal of malignent kidney tumor- [facility] -6 days 07/26/2018[facility] 12/12/20 * Hospitalization/Major Diagno stic Procedure:?[facility] - Ear infection ortisone shot right knee 02/03/2022 * Family History:?Mother: aliv e, foot problems, stroke, diagnosed with Unspecified heart disease.?Father: alive, diagnosed with Unspecified essential hypertension.?Maternal Grand [...] medical reasons in the past 12 months??No ???Miscellaneous:?Caffeine: yes, frequency:, 1-2 cups per day. ?Children: no. ?Exercise: no. ?Marital status: single. ?Occupation: Unemployed. ???Drug/Alcohol:?AUDIT-C (Standard)?Did you have a drink containing alcohol in the past year??No ?Points?0 ?Interpretation?Negative * Medications:?TakingFlonase I buprofen Clindamycin HCl , Notes to Pharmacist: PRNDoxycycline (Rosacea) Divalproex Sodium 500 MG Tablet Delayed Release 3 tablet Orally Twice a day , Notes to Pharmacist: BIDKeppra 1000 MG Tablet 1 tablet Orally every 12 hrs , Notes to Pharmacist: BIDLosartan Potassium 100 MG Tablet 1 tablet Orally Once a day Voltaren 1 % Gel as directed Externally Taking Flonase Taking Ibuprofen Taking Clindamycin HCl , Notes to Pharmacist: PRNTaking Doxycycline (Rosacea) Taking Divalproex Sodium 500 MG Tablet Delayed Release 3 tablet Orally Twice a day , Notes [...] Vitals:?Ht: 6ft 1in, Wt:300, BMI:39.58, Shoe size: 13W, BP:120/81mm Hg, Ht-cm: 185.42 cm, Wt-k.08 kg. * [...] to cool, proximal to distal, B/L.?PIGMENTATION:?normal, B/L.?EDEMA (C):?absent, B/L.?TELANGECTASIA:?absent.?VARICOSITIES:?absent.?Dermatologic: ?SKIN FINDINGS:?Skin exam reveals normal color, texture, elasticity, and turgor. There are no masses, nor excrescences. The interspaces are clear, B/L.?Orthopedic: ?MUSCLE STRENGTH:?5/5 all groups in a symmetrical fashion , B/L.?GAIT ABNORMALITY:?pronated, abducted, B/L.?BUNION:?Dorsally prominent 1st MPJ, significantly limited range of motion of first MPJ with crepitus, (+) tenderness with range of motion and pain on palpation of 1st MPJ RIGHT?inflammation present, .?X-Rays - IMAGING REPORT: ?Clinical Indication(s):? Evaluate Biomechanical Deformity.?Views:?3 views of Foot, RIGHT, AP, LAT, LO, Taken by a trained Podiatric Band Splicer ( [place] ).?Findings:?normal bone and soft tissue density consistent for patients age and sex, , asymmetrical joint space narrowing with degenerative changes to 2nd met head.?HAV:?there is asymmetrical narrowing of the 1st MPJ joint space, there is increased density of the 1st MPJ with asymmetrical joint space narrowing, there is squaring of the 1st MTH, there is an exostosis located at the dorolateral aspect of the 1st MTH, positive sesamoid hypertrophy.?Fracture:?Negative fractures identified.? Assessment: * Assessment: 1.?Metatarsalgia, right foot - M77.41???2.?Hallux rigidus, right foot - M20.21 (Primary)???3.?Osteoarthritis of right ankle and foot - M19.071???4.?Pain in right foot - M79.671??? Plan: * Treatment: * Procedure Codes:?97322 X-RAY EXAM OF RIGHT FOOT 3V, Modifiers: 26 , RT * Preventive Medicine:? ??Counseling:?Discussion:?-14: Office or other [...] exercise to failure, expense, systemic complications, infection, [id number], prolongued postop course. Patient questions re: the various treatment options available, their successes and potential failures, and truck terminal manager effects were discussed and the answers were verbally confirmed understood.?Podiatric Surgery Counseling:?Surgical procedures to treat the patients foot problem were discussed. We reviewed the risks of the procedure (described below) vs not having the procedure (persistent pain, deformity, risk for skin ulceration/infection, loss of toe). We discussed the potential procedure complications including, but not limited to: pain, swelling, bleeding, scarring, numbness, infection, delayed/non healing, floppy/unstable/shorthened toe, recurrence, failure of the procedure, overcorrection leading to plantarflexed/downward positioned toe, recurrence, need for further surgery, as well as the possibility for loss of the toe itself. We discussed the use of IV/Local anesthesia, and the usual post-op course for healing. No guarentees were given. The patient verbally indicated a full understanding of the above conversation, and any other of their questions were answered to their satisfaction, Discussed surgical options including joint replacement vs joint fusion. Discussed risks and benefits of the above mentioned procedures and their recovery times. , Recommended a joint fusion for lasting result, pt will consider surgery.?X-rays:?Discussed and reviewed the X-rays with the patient. We discussed how the findings relate to the patients symptoms/complaints. Answered any and all questions..? * Follow Up:?prn * Images: * Sign off status: Completed true * Provider:?Lizeth Olguin DPM Date:?09/2024 Generated for Kristy shipley/Narda/Mc on:?09/22/2024 08:16 AM EDT History and Physical Notes * HPI (History of Present Illness) Category Sub-Category Detail Notes Category Not es Foot Pain Aggrevated: walking, any pressure, stand ing, shoes Onset/Cause: gradual, denies trau judson Course: worse Duration: several months Nature: aching, tenderness, throbbing Treatments: rest, change in shoe Kevin cord[place] Bunionectomy 2020 Location Great toe joint , Ri ght Examination Category Sub-Category Detail Notes Category Not [...] are clear, B/L Orthopedic GAIT ABNORMALITY: pronated, abducted, B/L BUNION: Dorsally prominent 1 st MPJ, significantly limited range of motion of first MPJ with crepitus, (+) tenderness with range of motion and pain on palpation of 1st MPJ RIGHT inflammation present, MUSCLE STRENGTH: 5/5 all groups in a symmetrical fashion , B/L General Examination GENERAL APPEARANCE: Reveals a pleasant, [...] CONDITION-TEXTURE/ELASTICITY/TURGOR/HAIR GROWTH (B): normal, B/L EDEMA (C): absent, B/L TELANGECTASIA: absent VARICOSITIES: absent PIGMENTATION: normal, B/L X-Rays - IMAGING REPORT Findings: normal b one and soft tissue density consistent for patients age and sex, , asymmetrical joint space narrowing with degenerative changes to 2nd met head Fracture: Negative fractures i dentified HAV: there is asymmetrica l narrowing of the 1st MPJ joint space, there is increased density of the 1st MPJ with asymmetrical joint space narrowing, there is squaring of the 1st MTH, there is an exostosis located at the dorolateral aspect of the 1st MTH, positive sesamoid hypertrophy Views: 3 views of Foot, RIG HT, AP, LAT, LO, Taken by a trained Podiatric Band Splicer ( [facility] ) Clinical Indication(s): Evaluate Biomech anical Deformity
[2024-09-22 08:24] VITALS: BP 150/84; PULSE 92; RESP 18; TEMP 36.7; O2SAT 93
--- NOTE | 2024-09-22 09:22 | ED_ITS ---
HPI - General Adult General Chief complaint: General Medical Stated complaint: high bp eyes issue Time Seen by Provider: 09/22/24 09:22 Source: patient Mode of arrival: ambulatory Limitations: no limitations History of Present Illness ED Provider: Lisa Porras PA-C HPI narrative: Patient is a 49 year old assigned male at with a history of HTN, epilepsy, anxiety, and sleep apnea presenting to the emergency department today with pressure behind his eyes and concerns about his blood pressure. Patient states that at 6pm last night he was reading and starting to have some increased pressure behind his eyes and then broke out in a cold sweat. Patient states that the symptoms improved but he checked his blood pressure and it was high. Patient states that he has been under much more stress lately. Patient denies any dizziness, lightheadedness, abdominal pain, nausea, vomiting, fever, chills, blurry vision, double vision, loss of vision, chest pain, difficulty breathing, shortness of breath, back pain, night sweats, pain with urination, increased urinary frequency, increased urinary urgency, blood in his urine or stool, syncope or a near syncopal episode, recent trauma or falls, bowel incontinence, bladder incontinence, or any other complaints at this time. Relieving factors: none Exacerbating factors: none Associated symptoms: headaches Treatments prior to arrival: none Related Data Home Medications ?Medication ?Instructions ?Recorded ?Confirmed divalproex 125 mg tablet,delayed 125 mg PO BID 03/11/20 09/24/22 release divalproex 500 mg tablet,extended 1,500 mg PO BID 03/11/20 09/24/22 release 24 hr levetiracetam 1,000 mg tablet 1,000 mg PO BID 03/11/20 09/24/22 levetiracetam 250 mg tablet 250 mg PO BID 03/11/20 09/24/22 clindamycin phosphate 1 % topical 1 appl topical BID 09/30/21 09/24/22 gel clindamycin HCl 300 mg capsule 300 mg PO BID 09/14/23 Previous Rx's ?Medication ?Instructions ?Recorded losartan 100 mg tablet 100 mg PO DAILY 30 days #30 tabs 02/21/24 Allergies Allergy/AdvReac Type Severity Reaction Status Date / Time carbamazepine [From TEGRETOL] Allergy Severe RASH Verified 09/22/24 07:20 lamotrigine [From Lamictal] AdvReac Hallucinati Verified 09/22/24 07:20 ons Review of Systems 2 Constitutional: Constitutional: Reports no additional constitutional complaints, Denies chills, Denies fever(s), Reports headache(s) (now resolved) and Denies night sweats Eyes: Eyes: Reports no additional eye complaints, Denies blurry vision, Denies change in vision, Denies diplopia, Denies eye discharge, Denies loss of vision and Denies eye pain ENT: Denies dizziness and Reports headache(s) (now resolved) Cardiovascular: Cardiovascular: Reports no additional cardiovascular complaints, Denies chest pain, Denies lightheadedness, Denies Loss of Consciousness and Denies dyspnea Respiratory: Respiratory: Reports no additional respiratory complaints and Denies dyspnea Gastrointestinal: Gastrointestinal: Reports no additional gastrointestinal complaints, Denies abdominal pain, Denies melena, Denies hematochezia, Denies change in bowel habits and Denies change in stool character Genitourinary: Genitourinary: Reports no additional male genitourinary complaints, Denies hematuria, Denies oliguria, Denies difficulty urinating, Denies dysuria, Denies urinary frequency, Denies urinary hesitancy, Denies urinary incontinence and Denies urinary urgency Musculoskeletal: Musculoskeletal: Reports no additional musculoskeletal complaints, Denies numbness and Denies tingling Neurologic: Denies dizziness, Reports headache(s) (now resolved), Denies loss of vision, Denies numbness and Denies tingling Psychiatric: Psychiatric: Reports no additional psychiatric complaints Endocrine: Endocrine: Reports no additional endocrine complaints Hematologic/Lymphatic: Hematologic/Lymphatic: Reports no additional hematologic/lymphatic complaints Allergic/Immunologic: Allergic/Immunologic: Reports no additional allergic/immunologic complaints [facility] Past Medical History Attestation statement: The following information was validated with the patient. Source: old records reviewed and nursing notes reviewed Medical History Contusion of right knee Anxiety Seasonal allergies Arthritis History of seizures History of general anesthesia Sleep apnea Morbid obesity Tachycardia Essential hypertension Sinus tachycardia Surgical History History of nephrectomy, left History of wisdom tooth extraction Hx of brain surgery (~1992) Family History Family History Father Dementia Mother No problems noted. Social History Social History Alcohol intake: never Patient Tobacco Use Status: Never used Tobacco Physical Exam ED Vital Signs: Vital Signs - 24 hr 09/22/24 07:16 09/22/24 08:24 09/22/24 10:14 Temperature 98.6 F 98.0 F 97.7 F Pulse Rate 106 H 92 90 Respiratory Rate 20 18 18 Blood Pressure 166/99 H 150/84 H 149/91 H Pulse Oximetry 98 93 95 Oxygen Delivery Method Room Air Room Air Room Air 09/22/24 11:20 Temperature 97.7 F Pulse Rate 90 Respiratory Rate 18 Blood Pressure 149/91 H Pulse Oximetry 95 Oxygen Delivery Method Room Air BMI result Body Mass Index 42.1 Const General: cooperative, no acute distress, alert and awake Nutritional Appearance: well nourished Orientation/consciousness: patient oriented x3 Limitations: no limitations HENMT Other: scalp has some scattered thickening which patient confirms is chronic for him Head: Yes atraumatic Ears: hearing grossly normal bilaterally and external ears normal General nose exam: Normal external nose present, no nasal discharge noted and no epistaxis Face and sinus: Yes normal facial exam, No abrasion and No laceration Mouth: Normal oral and palatal mucosa present, no drooling and no muffled voice Eyes General: appearance normal, both eyes and all related structures Periorbital: periorbital findings normal Eyelids: Yes eyelids normal Conjunctivae: conjunctivae normal Pupils: Equal, round and reactive pupils present EOM: EOMs intact bilaterally Neck Neck: Yes normal visual inspection, Yes full ROM and Yes no lymphadenopathy Chest Chest palpation & inspection: normal inspection of the chest Resp Effort & Inspection: normal respiratory effort and able to speak in complete sentences GI Inspection: Yes normal to inspection Neuro General: patient oriented x3, moves all extremities and CN's II-XI intact bilaterally Cranial nerves: Yes Equal, round and reactive pupils present Cognition (Neuro): normal cognition Extrem General: Yes normal to inspection, Yes full ROM and Yes capillary refill normal Psych Appearance: grossly normal Mental Status: mental status grossly normal Affect: normal affect Attitude: cooperative Thought process: Normal thought process present Thought content: Normal thought content present Insight: Good insight present (Psych) Medical Decision Making Medical Decision Making MDM Narrative: Patient is a 49 year old assigned male at with a history of HTN, epilepsy, anxiety, and sleep apnea presenting to the emergency department today with pressure behind his eyes and concerns about his blood pressure. Patient's physical exam was unremarkable. Patient's blood work was unremarkable. Patient's EKG was unremarkable. Patient's head CT showed no acute process. Patient's clinical process is most consistent with elevated blood pressure in the setting of increased stress with intermittent headaches but not hypertensive urgency or emergency. I explained my physical exam findings as well as all test results to the patient. I answered all questions asked by the patient. I stressed the importance of the patient taking his medication as directed (either prescribed or as the over the counter packaging recommends). I stressed the importance of the patient following up with his primary care provider. I stressed the importance of the patient returning to the emergency department immediately if his symptoms were to worsen or if he were to develop any dizziness, shortness of breath, difficulty breathing, chest pain, blurry vision, loss of vision, nausea, vomiting, abdominal pain, fever, chills, back pain, or any other complaints. Patient verbalized agreement and understanding with this treatment plan and discharge. Differential Diagnosis Differential Diagnoses: The differential diagnosis associated with the presentation includes HTN Stress reaction Admission/Observation Consideration of admission/observation: Escalation of care including admission/observation considered Patient would have been admitted to the hospital had his work up had any findings where hospital admission was appropriate and his clinical presentation warranted hospital admission. Lab Data [facility] Lab Attestation statement: I reviewed the patient's lab results. My interpretation of these results are in the [facility] Rationale portion of this note. 09/22/24 07:32 09/22/24 07:32 Labs: Lab Results 09/22/24 09/22/24 Range/Units 07:32 09:43 WBC 9.1 (4.8-10.8) X10*3/uL RBC 4.44 L (4.60-5.80) X10*6/uL Hgb 13.2 L (14.0-18.0) g/dl Hct 40.5 L (42.0-52.0) % MCV 91.2 (80.0-98.0) fL MCH 29.7 (27.0-33.0) pg MCHC 32.6 (31.0-36.0) g/dl RDW 13.7 (11.0-16.0) % Plt Count 177 (160-400) X10*3/uL MPV 10.1 (9.4-12.4) fL Immature Gran % (Auto) 1.0 H (0.0-0.4) % Neut % (Auto) 48.9 (45-73) % Lymph % (Auto) 38.3 (20-40) % [place] % (Auto) 6.7 (2-11) % Eos % (Auto) 4.4 H (0-4) % Baso % (Auto) 0.7 (0-2) % Lymph # (Auto) 3.5 (1.2-4.9) X10*3/uL [place] # (Auto) 0.6 (0.1-1.2) X10*3/uL Eos # (Auto) 0.4 (0.0-0.4) X10*3/uL Baso # (Auto) 0.1 (0.0-0.2) X10*3/uL Abs Immat Gran (auto) 0.09 H (0.00-0.03) X10*3/uL Absolute Neuts (auto) 4.5 (2.0-8.3) x10*3/uL Absolute Nucleated RBC 0.000 (0.0-0.012) X10*3/uL Nucleated RBC % (auto) 0.0 (0.0-0.2) /100WBC Sodium 140 (135-145) mmol/L Potassium 4.3 (3.3-5.1) mmol/L Chloride 103 (96-108) mmol/L Carbon Dioxide 29 (22-29) mmol/L Anion Gap 12 (12-20) BUN 15 (9-16) mg/dL Creatinine 0.79 (0.5-1.4) mg/dL Estim Creat Clear Calc 164.5 Estimated GFR > 60 Random Glucose 102 (60-115) mg/dL Calcium 9.4 (8.4-10.2) mg/dL Total Bilirubin 0.3 (0.0-1.0) mg/dL AST 24 (5-37) U/L ALT 22 (0-40) U/L Alkaline Phosphatase 43 (39-117) U/L Total Protein 7.3 (6.5-8.0) g/dL Albumin 4.1 (3.5-5.0) g/dL Influenza Type A (PCR) NEGATIVE (Negative) Influenza Type B (PCR) NEGATIVE (Negative) RSV RNA Qual (PCR) NEGATIVE (Negative) SARS-CoV-2 RNA (RT-PCR) NEGATIVE (Negative) Independent Interpretation I performed an independent interpretation of an: EKG and CT Scan Interpretation: My interpretation is in agreement with the radiologist's impression of this imaging study. L Report Number: [id number]: Total DLP = 947.00 mGy-cm EXAMINATION: CT HEAD WITHOUT CONTRAST CLINICAL INFORMATION: Hypertension, headache, behind eye pressure. COMPARISON: None available. TECHNIQUE: Contiguous axial imaging was performed from the skull base to vertex without intravenous administration of contrast. This CT examination was performed using dose optimization techniques as appropriate, variously including the following: *Automated exposure control *Adjustment of mA and/or kV according to patient size (this includes techniques or standardized protocols for targeted exams where dose is matched to indication/reason for exam; i.e. extremities or head) *Use of iterative reconstruction technique FINDINGS: There is no evidence of intracranial hemorrhage or extra-axial fluid collection. There is no mass effect, or edema. No CT evidence of acute territorial infarct. Ventricles, sulci, and cisterns are normal in size and configuration for patient age. No hydrocephalus. No midline shift. Negative hyperdense MCA sign. Negative insular ribbon sign. Chronic encephalomalacia in the right frontal lobe, from prior infarct, surgery, or trauma. There are falcine calcifications. Patchy periventricular and deep white matter hypoattenuation is consistent with mild to moderate small vessel ischemic changes. Partial empty sella. Globes and orbital contents image normally. Extracranial soft tissues demonstrate thickening and nodularity of the right. In left scalp, unknown significance. Consider neurofibromatosis. Old right frontal craniotomy. Mild polypoid mucosal thickening in the dependent maxillary sinuses bilaterally. Paranasal sinuses otherwise pneumatized normally. Mastoids and tympanic space is pneumatized normally. No suspicious bony abnormalities. There are no acute fractures evident. Old right frontal craniotomy. CT/CT head/brain wo IV con IMPRESSION: 1. No acute intracranial abnormality. 2. Old right frontal craniotomy with underlying right frontal encephalomalacia. 3. Nodular extracranial scalp soft tissue thickening right greater than left. This is of uncertain etiology although can be seen with neurofibromatosis. Recommend correlating visually. Electronically signed by: Mariano Crawford MD 09/22/2024 10:52 AM EDT RP Dictated By: Mariano Crawford MD Signed By: Electronically signed by Mariano Crawford MD 09/22/24 1052 I independently interpreted this EKG and am in agreement with the below findings: Vent. Rate: 98 BPM Atrial Rate: 98 BPM P-R Int: 134 ms QRS Dur: 82 ms QT Int: 348 ms P-R-T Axes: 38 40 69 degrees QTcB Int: 444 ms Normal sinus rhythm Normal ECG When compared with ECG of 04-Jan-2020 16:40, Nonspecific T wave abnormality no longer evident in Inferior leads Nonspecific T wave abnormality, improved in Lateral leads DD/ 0726 Radiology Impression Discussion of test interpretation with radiology: I have reviewed the radiologist's reading. Chronic Conditions Patient?s care impacted by: Hypertension Discharge Plan Discharge Clinical Impression: HTN (hypertension) Patient Disposition: Home, Self-Care Instructions: Hypertension (ED) Additional Instructions: Follow up with your primary care provider. Return to the emergency department immediately if your symptoms worsen or if you develop any numbness, tingling, dizziness, shortness of breath, difficulty breathing, chest pain, blurry vision, loss of vision, nausea, vomiting, abdominal pain, fever, chills, back pain, or any other complaints. Please see the information below about our Patient Portal. If you are not yet enrolled in the [facility] Patient Portal, you will receive an enrollment email invitation following your visit to any [facility] care setting. You may also self-enroll in the Patient Portal by visiting our website: [email or web address] The following information is required to access the Patient Portal: - Your [facility] Medical Record Number - Your personal home email address (must match what is in your electronic medical record, Registration staff can assist with this) - Name - Date of Capabilities of the Patient Portal: - Message some providers - View upcoming appointments - Access your health summary, medical history, and visit history - View current conditions and allergies - View procedure and lab results - View your medications, including guidelines, side effects, and precautions - Complete pre-appointment questionnaires requested by your provider - Ready summary reports of your office visits and procedures To access the Patient Portal Mobile [employer], follow these directions: - Search [employer] in the [employer] Store or [employer] Store - Download the Sally - Search for [facility] - Enter your login/password Prescriptions: No Action losartan 100 mg tablet 100 mg PO DAILY 30 Days Qty: 30 0RF Rx Instructions: must make cardiology appt for refills clindamycin HCl 300 mg capsule 300 mg PO BID divalproex 125 mg tablet,delayed release (DR/EC) 125 mg PO BID levetiracetam 1,000 mg tablet 1,000 mg PO BID levetiracetam 250 mg tablet 250 mg PO BID divalproex 500 mg tablet extended release 24 hr 1,500 mg PO BID clindamycin phosphate 1 % gel 1 appl topical BID Referrals: Marciano Kenny MD [Primary Care Provider] - Interventions: ED Discharge Assessment Last Done: 09/22/24 11:20 Discharge Date/Time: 09/22/24 11:20 Print Language: [place]
[2024-09-22 10:14] VITALS: BP 149/91; PULSE 90; RESP 18; TEMP 36.5; O2SAT 95
--- NOTE | 2024-09-22 10:15 | PC.NURSE ---
pt is alert and oriented, skin pwd, respirations even and unlabored, pt reports that last night his blood pressure was elevated 155/00 and this morning as well, pt does take Lassarten 100mg, pt reports slight headache 2/10, no visual disturbances but reports noticing that his pupils were extremely small last night, pupils are reactive to light at this time and about 2cm, pt is also reporting some life stresses at home with taking care of his mother
[2024-09-22 10:27] LABS: Influenza A PCR NEGATIVE (Negative); Influenza B PCR NEGATIVE (Negative); Resp Syncy Virus RNA Qual PCR NEGATIVE (Negative); SARS COV2 PCR INHOUSE NEGATIVE (Negative)
[2024-09-22 11:20] VITALS: BP 149/91; PULSE 90; RESP 18; TEMP 36.5; O2SAT 95
== END 2024-09-22 11:20 | disposition home or self-care (01) ==
PROVIDERS: Physician Assistant Medical; Emergency Provider Emergency Medicine Emergency Medical Services; PCP Internal Medicine
DX: R51.9 Headache, unspecified (principal); I10 Essential (primary) hypertension; Z03.818 Encounter for observation for suspected exposure to other biological agents ruled out; Z79.899 Other long term (current) drug therapy
CPT/HCPCS: 0241U; 36415; 70450; 80053; 85025; 93005; 99284

== ENCOUNTER → 2024-09-22 07:26 | Outpatient (BNV) | payer MEDICARE, OTHER, SELFPAY | PROVIDERS: Emergency Provider Emergency Medicine Emergency Medical Services; PCP Internal Medicine; Visit Provider Internal Medicine Cardiovascular Disease | DX: I10 Essential (primary) hypertension (principal) | CPT/HCPCS: 93010 ==

== ENCOUNTER → 2024-09-22 09:38 | Outpatient (BNV) | payer MEDICARE, OTHER, SELFPAY | PROVIDERS: Emergency Provider Emergency Medicine Emergency Medical Services; PCP Internal Medicine; Visit Provider Radiology Diagnostic Radiology | DX: R51.9 Headache, unspecified (principal) | CPT/HCPCS: 70450 ==

== ENCOUNTER 2024-09-25 13:08 | Outpatient (AMB) | payer MEDICARE, OTHER, SELFPAY ==
[2024-09-25 13:13] VITALS: BMI 42.0
--- NOTE | 2024-09-25 13:13 | A.OFFVIS_ITS ---
Vital Signs 09/25/24 13:13 Height 6 ft Weight 310 lb BMI 42.0 Intake Visit Reasons: F/u s/p Rt Knee Durolane Injection Intake Note: Vipin is a 49 year old male who presents today for a follow up of his right knee s/p Durolane injection that was administered on 06/29/23.Patient reports that he did have relief from the injection but it seems to have lessened in effect fast er than the previous one. He is interested in having a cortisone injection today in his right knee. Allergies carbamazepine [From TEGRETOL] Allergy (Severe, Verified 09/25/24 13:18) RASH lamotrigine [From Lamictal] Adverse Reaction (Verified 09/25/24 13:18) Hallucinations HPI HPI F/u s/p Rt Knee Durolane Injection: Details: Vipin only got 3 months relief from right Durolane injection. Having worsening pain with daily activities. He is also describing right shoulder pain with overhead activities and with reaching. He has not been treated for this. [facility] Medical History Contusion of right knee Anxiety Seasonal allergies Arthritis History of seizures History of general anesthesia Sleep apnea Morbid obesity Tachycardia Essential hypertension Sinus tachycardia Surgical History History of nephrectomy, left History of wisdom tooth extraction Hx of brain surgery (~1992) Family History Father Dementia Mother No problems noted. Social History Alcohol intake: never Patient Tobacco Use Status: Never used Tobacco Physical Exam Vital Signs: BMI result Body Mass Index 42.0 Extrem Other: Tenderness to palpation medial compartment right knee. Full range of motion right shoulder Positive Burke's Tenderness to palpation bicipital groove proximally Negative empty can Office Procedures Joint Inj/Aspir; Non-Pain Clin Joint Injection/Drain Details: Injected 1 mL of Decadron and 3 mL 1% lidocaine and 3 mL of 0.25% Marcaine. Site was prepped using aseptic technique. Patient tolerated the procedure well. Shoulders, Hips, Knees, Knee Large Joint Injection : Right Knee Coding Procedure code (CPT) selection complete Assessment & Plan Assessment & Plan (1) Localized osteoarthritis of right knee: Code(s): M17.11 - Unilateral primary osteoarthritis, right knee Category: Medical Plan: Right knee is doing okay. Viscosupplementation only minimally helpful. I injected his right knee today and we will see him back in 3 months. (2) Right anterior shoulder pain: Code(s): M25.511 - Pain in right shoulder Category: Medical Plan: PT for right shoulder pain. Coding Level of Care Code Est Pt Level 3 (25227) Complex EM visit Add On G2211 Diagnoses Localized osteoarthritis of right knee M17.11 Right anterior shoulder pain M25.511 CPT Codes Shoulders, Hips, Knees, - Knee Large Joint Injection : Right Knee ([id number])
--- OUTSIDE RECORDS SUMMARY | 2024-09-25 15:03 | XMS_ITS ---
Author Organization [facility] Address [address] [place] [address] Care Team Providers Care Gsa Coordinator Name Role Phone Marciano Kenny MD Primary Care Provider Lizeth Pineda Unavailable [phone] Shaila Neves Unavailable [phone] Allergies Allergen (clinical drug ingredient) Drug/Non Drug [...] Problem Status W/U Status Risk Notes Problem 373895311 Hallux rigidus o f left foot (M20.22) Active confirmed Problem 02131624 Osteoarthritis o f right ankle and foot (M19.071) Active confirmed Vital Signs Height 6ft 1in in 07/07/2024 Weight 300 lbs 07/07/2024 BMI 39.58 kg/m2 07/07/2024 Blood pressure systolic 132 mm Hg 07/07/19 25 Blood pressure diastolic 75 mm Hg 025 Encounters Encounter Location Date Provider Diagnosis [facility] [address] [address] 07/07/2024 Shaila Neves Hallux rigidus, right foot [...] LEGER JR FDOB:[birth year] (49 yo M)Acc No.[id number]:07/07/2024 Progress Note Patient:?Vipin LEGER JR Provider:?Shaila Neves DPM :1975???Age:49 Y???Sex:Male Todd e:07/07/2024 Address:[address] [place] [address] [id number] Pcp:Marciano Kenny MD Subjective: * Chief Complaints: [...] surg saeid 06/30/91removal of malignent kidney tumor- [facility] -6 days 07/26/2018[facility]ide R 12/12/20 * [...] ray : Foot, left 3V * Procedure Codes:?30178 X-RAY EXAM OF LEFT FOOT 3V, Modifiers: 26 , [id number] Prescription Custom Fabricated Foot insert, Units: 2.00 [...] exercise to failure, expense, systemic complications, infection, [id number], prolongued postop course. Patient questions re: the various treatment options available, their successes and potential failures, and continuous churn buttermaker effects were discussed and the answers were [...] DPM Date:?0 07/07/2024 Generated for Kristy shipley/Narda/Mc on:?09/25/2024 03:03 PM EDT History and Physical Notes * HPI [...] no tenderness with palpation of 1st MPJ [id number] MPJ left- mild dorsal prominence, mild limited [...]
--- OUTSIDE RECORDS SUMMARY | 2024-09-25 15:04 | XMS_ITS | Clinical Summary ---
Author Organization [facility] Address [address] [place] [address] Care Team Providers Care Bagging Salvager Name Role Phone Marciano Kenny MD Primary Care Provider [phone] Allergies Active Allergy Reactions Criticality Noted Date Comments Lamotrigine Delirium/Confusion/Psychosis Medium 2024 Carbamazepine Hives Medium 07/18/2024 Medications Medication Sig Dispensed Refills Start Date End Date Status SUPPLY DME MISCIndications:Heel pain, bilateral Shoe Wear Evaluation Dx: Heel spurs, Metatarsalgia, Pes plano valgus [facility] [address] [address] 1 each 08/07/2024 Active Encounters Date Type Department Care Team Description 08/21/2024 Scanned Document [facility] [address] [address] Mara Zamora 08/21/2024 Orders Only [facility] [address] [address] Ty Fernandez MD 07/20/2024 Documentation [facility] [address] [address] Ty Fernandez MD 07/18/2024 3:20 PM EST Ancillary Procedure [facility] [address] [address] 07/18/2024 3:00 PM EST Consult [facility] [address] [address] Ty Fernandez MD Heel pain, bilateral (Primary Dx) from Last 3 Months Social History Tobacco Use Types Packs/Day Years Used Date Smoking Tobacco: Never Assessed Sex and Gender Information Value Date Recorded Sex Assigned at Male 09/03/2024 11:16 PM EDT Gender Identity Male 09/03/2024 11:16 PM EDT Sexual Orientation Not on file Plan of Treatment Upcoming Encounters Date Type Department Care Team ([facility] st Contact Info) Description 10/03/2024 1:45 PM EDT Office Visit [facility] [address] Ty Fernandez MD [address] [place] [address] Health Maintenance Due Date Last Done Comments [...] views-Bilateral (07/18/2024 3:31 PM EST) Narrative [facility] - 07/18/2024 3:31 PM EST This exam was performed in office at [facility] and images reviewed by orthopedic provider. ??Any findings are documented within ambulatory encounter note on date of service. Ty Fernandez MD IMG DIAGNOSTIC IMAGI NG ORDERABLES [facility] * XR Ankle 2 views-Bilateral (07/18/2024 3:31 PM EST) Narrative [facility] - 07/18/2024 3:31 PM EST This exam was performed in office at [facility] and images reviewed by orthopedic provider. ??Any findings are documented within ambulatory encounter note on date of service. Ty YUG DIAGNOSTIC IMAGI NG ORDERABLES OA from Last 3 Months Care Teams Bagging Salvager Relationship Specialty Start Date End Date Marciano Kenny MD [address] [place] [address] PCP - General Family Medicine 07/18/24
--- OUTSIDE RECORDS SUMMARY | 2024-09-25 15:04 | XMS_ITS | Encounter Summary ---
Author Organization [facility] Address [address] [place] [address] Care Team Providers Care Data Power Consultant Name Role Phone Marciano Kenny MD Primary Care Provider [phone] Encounter Details Date Type Department Care Team (Late st Contact Info) Description 08/21/2024 Scanned Document [facility] [place] [address] Mara Zamora [address] [place] [address] Social History Tobacco Use Types Packs/Day Years [...] 10/03/2024 1:45 PM [place] [address] Ty Fernandez MD [address] [place] [address] documented as of this encounter Visit Diagnoses Not on filedocumented in this encounter Care Teams Data Power Consultant Relationship Specialty Start Date End Date Marciano Kenny MD [address] [place] [address] PCP - General Family Medicine 07/18/24 documented as of this encounter
--- OUTSIDE RECORDS SUMMARY | 2024-09-25 15:04 | XMS_ITS | Patient Health Record ---
Author Organization [facility] Address [address] [place] [address] Care Team Providers Care Millinery Copyist Name Role Phone MONICA BIRMINGHAM Unavailable [phone] REASON FOR REFERRAL No Information PLAN OF TREATMENT No Information Insurance Providers Payer Name Payer Address Payer Phone Subscriber Number Group Number Insured Name Patient Relationship to Insured Coverage Start Date Coverage End Date Medicare Part B J14 [address] Shavonne shaun osuna [id number] Vipin Leger Self - patient is the insured [facility] Indemnity Plan [facility] [address] [place] [address] [id number] Vipin Leger Self - patient is the insured
--- OUTSIDE RECORDS SUMMARY | 2024-09-25 15:04 | XMS_ITS ---
Author Organization [facility] Address [address] [place] [address] Care Team Providers Care Community Nutrition Educator Name Role Phone Marciano Kenny MD Primary Care Provider Lizeth Pineda Unavailable [phone] Shaila Neves Unavailable [phone] REASON FOR VISIT DPM Custom orthotics Encounters Encounter [facility] Date [facility] [address] 07/25/2024 Shaila Neves Plan Of Treatment No Information Progress Notes * Vipin LEGER JR FDOB:[birth year] (49 yo M)Acc No.[id number]:07/25/2024 Patient:?Vipin LEGER JR :1975???Age:49 Y???Sex:Male Address:[address] [place] [address], [address] * * Date:?
--- OUTSIDE RECORDS SUMMARY | 2024-09-25 15:04 | XMS_ITS ---
Author Organization [facility] Address [address] [facility] [place] [address] Care Team Providers Care Spine Nurse Name Role Phone Maricano Kenny MD Primary Care Provider Lizeth Pineda Unavailable [phone] Allergies Allergen (clinical drug ingredient) Drug/Non Drug [...] 025 Encounters Encounter Location Date Provider Diagnosis [facility] [address] [place] [address] 08/15/2024 Lizeth Olguin Hallux rigidus, righ t [...] LEGER JR FDOB:[birth year] (49 yo M)Acc No.[id number]:08/15/2024 Progress Note Patient:?ARSENVipin NEW JR Erick Provider:?Lizeth Olguin DPM :1975???Age:49 Y???Sex:Male Todd e:08/15/2024 Address:[address] [place], [place] [address] Pcp:Marciano Kenny MD Subjective: * Chief Complaints: [...] Cramps/ Resting?denies.?Muscle cramps / walking?denies.?Generalized aches and pains?admits.?Weakness?denies.?Integ.:?Lui?denies.?Scars?denies.?Corns/calluses?denies.?Ingrown nails?denies.?Painful nails?denies.?Open Sores?denies.?Rashes?denies.?Neurologic:?Difficulty sleeping?denies.?Brain disorder?denies.?Numbness?denies.?Balance trouble?denies.?Confusion?denies.?Fainting/blackouts?denies.?Tingling?denies.?Tr emors?denies.? * Medical History:? * Surgical History:?brain surg saeid 06/30/91removal of malignent kidney tumor- [facility] -6 days 07/26/2018[facility] 12/12/20 * [...] LAT, LO, Taken by a trained Podiatric Veneer Stock Grader ( TESSA ).?Findings:?normal bone and soft tissue [...] - M79.671??? Plan: * Treatment: * Procedure Codes:?33040 X-RAY EXAM OF RIGHT FOOT 3V, Modifiers: [...] exercise to failure, expense, systemic complications, infection, [id number], prolongued postop course. Patient questions re: the various treatment options available, their successes and potential failures, and intermodal owner operator truck driver effects were discussed and the answers were [...] Olguin DPM Date:?09/2024 Generated for Kristy shipley/Narda/Mc on:?09/25/2024 03:04 PM EDT History and Physical Notes * HPI (History of Present Illness) Category Sub-Category Detail Notes Category Not es Foot Pain Aggrevated: walking, any pressure, stand ing, shoes Onset/Cause: gradual, denies tradiya roper Course: worse Duration: several months Nature: aching, [...] LAT, LO, Taken by a trained Podiatric Veneer Stock Grader ( MB ) Clinical Indication(s): Evaluate Biomech anical Deformity
--- OUTSIDE RECORDS SUMMARY | 2024-09-25 15:04 | XMS_ITS | Patient Health Record ---
Author Organization [facility] Address [address] [place] [address] Care Team Providers Care Drafter Landscape Name Role Phone Marciano Kenny MD Primary Care Provider UnavailLizeth Zeng Unavailable [phone] Sal Fine Unavailable [phone] Shaila Neves Unavailable [phone] Allergies Allergen (clinical drug ingredient) Drug/Non Drug [...] Status W/U Status Risk Notes Problem Gout (75368792) Gout, unspecifie d (M10.9) Active confirmed Problem Acquired hallux rigidus (6763866) Hallux rigidus, right foot (M20.21) Active confirmed Problem 988090677 Hallux rigidus o f left foot (M20.22) Active confirmed Problem 28296252 Osteoarthritis o f right ankle and foot (M19.071) Active confirmed Problem Localized, primary osteoarthritis of the ankle and/or foot (077645830) -Arthritis of foot, right (M19.071) Active confirmed Vital Signs Blood pressure diastolic 81 mm Hg 08/15/2024 Height 6ft 1in in 08/15/2024 Blood pressure systolic 120 mm Hg 08/15/2024 Weight 300 lbs 08/15/2024 BMI 39.58 kg/m2 08/15/2024 Encounters Encounter Location Date [facility] [address] [place] [address] 02/10/2024 Sal Fine Pain in right foot M79.671 ; Metatarsalgia, right foot M77.41 and Hallux rigidus, right foot M20.21 [facility] [address] 04/07/2024 Shaila Neves Ingrown nail L60.0 and Hallux rigidus, right foot M20.21 [facility] [address] 07/07/2024 Shaila Neves Hallux rigidus, right foot M20.21 ; Hallux rigidus of left foot M20.22 ; Metatarsalgia, right foot M77.41 and Osteoarthritis of right ankle and foot M19.071 [facility] [place] [address] [place] [address] 08/15/2024 Lizeth Olguin Hallux rigidus, righ t foot M20.21 ; Metatarsalgia, right foot M77.41 ; Osteoarthritis of right ankle and foot M19.071 and Pain in right foot M79.671 [facility] [address] [facility] [address] [place] [address] 07/25/2024 [facility]ail[facility] Neves [facility] [address] [place] [address] 05/31/2024 Shaila Neves Assessments Encounter Date Diagnosis [...] X ray : Foot, right 3V 02/10/2024 17109-Dzmgdtiw Plate 12/31/2017 75492 I&D ABSCESS- SIMPLE,SINGLE 019 , M5220-QGAQG/INJECT, JOINT/BURSA 0 06/27/2020, D9790-IRBSS/INJECT, JOINT/BURSA 0 10/31/2020 11830- Nail Unit Biopsy 12/31/2017 Insurance Providers Payer Name Payer Address Payer Phone Subscriber Number Group Number Insured Name Patient Relationship to Insured Coverage Start Date Coverage End Date Medicare National Govt Svcs Inc [address] [facility] [address] [id number] Vipin Leger Jr Self - patient is the insured [employer] [address] [place] [address] [id number] Vipin Leger Jr Self - patient is the insured Medical (General) History Medical History History ICD Code Anxiety Chicken pox Epilepsy Sleep apnea Surgical History Surgery Date(Month/Year) brain surgery 06/30/91 removal of malignent kidney tumor- [facility] -6 days 07/26/2018 Grace Moreno 12/12/20 Hospitalization History Reason Date(Month/Year) Cortisone shot right knee 02/03/2022 [facility] - Ear infection 2020
== END 2024-09-25 13:44 | disposition home or self-care (01) ==
LOC: HO.HOS 13:08
PROVIDERS: PCP Internal Medicine; Visit Provider Orthopaedic Surgery
DX: M17.11 Unilateral primary osteoarthritis, right knee (principal)
CPT/HCPCS: 20610; 99213

== ENCOUNTER → 2024-09-25 13:08 | Outpatient (BNVA) | payer MEDICARE, OTHER, SELFPAY | PROVIDERS: PCP Internal Medicine; Visit Provider Orthopaedic Surgery | DX: M17.11 Unilateral primary osteoarthritis, right knee (principal) | CPT/HCPCS: 20610; 99212; J0665; J1100; J2003 ==

== ENCOUNTER 2024-11-27 12:45 | Outpatient (AMB) | payer MEDICARE, OTHER, SELFPAY ==
[2024-11-27 12:50] VITALS: BMI 42.0
--- NOTE | 2024-11-27 12:50 | MHC.OFFVIS ---
Vital Signs 11/27/24 12:50 Height 6 ft Weight 310 lb BMI 42.0 Intake Visit Reasons: OV- RT knee Durolane Inj Intake Note: Vipin is a 49 year old male who presents today for a Right Knee Durolane Injection. Patient reports that the second injection lasted about four months but then wore off. Allergies carbamazepine (From TEGRETOL) Allergy (Severe, Verified 11/27/24 12:53) RASH lamotrigine (From Lamictal) Adverse Reaction (Verified 11/27/24 12:53) Hallucinations HPI HPI OV- RT knee Durolane Inj: Details: Vipin is a 49 year old male who presents today for a Right Knee Durolane Injection. Patient reports that the second injection lasted about four months but then wore off. [facility] Medical History Contusion of right knee Anxiety Seasonal allergies Arthritis History of seizures History of general anesthesia Sleep apnea Morbid obesity Tachycardia Essential hypertension Sinus tachycardia Surgical History History of nephrectomy, left History of wisdom tooth extraction Hx of brain surgery (~1992) Family History Father Dementia Mother No problems noted. Social History Alcohol intake: never Patient Tobacco Use Status: Never used Tobacco Physical Exam Vital Signs: BMI result Body Mass Index 42.0 Extrem Other: Skin clean dry and intact Office Procedures Joint Inj/Aspir; Non-Pain Clin Joint Injection/Drain Details: Injected Durolane. Site was prepped using aseptic technique. Patient tolerated the procedure well. Shoulders, Hips, Knees, Details: I injected his right knee with Durolane 60mg/3mL Syringe Knee Large Joint Injection : Right Knee Coding Procedure code (CPT) selection complete Assessment & Plan Assessment & Plan (1) Localized osteoarthritis of right knee: Code(s): M17.11 - Unilateral primary osteoarthritis, right knee Category: Medical Plan: Right knee Durolane injected. No complications. Follow up as needed. Plan I injected his right knee with a Durolane injection. He may follow up in 6 months Coding Level of Care Code Est Pt Level 2 (04175) Diagnoses Localized osteoarthritis of right knee M17.11 CPT Codes Shoulders, Hips, Knees, - Knee Large Joint Injection 04477: Right Knee ([id number])
--- OUTSIDE RECORDS SUMMARY | 2024-11-27 14:05 | XMS_ITS | Patient Health Record ---
Author Organization [facility] Address [address] [place] [address] Care Team Providers Care Electrician Radio Name Role Phone Marciano Kenny MD Primary Care Provider UnavailLizeth Zeng Unavailable [phone] Sal Fine Unavailable [phone] Shaila Neves Unavailable [phone] Allergies Allergen (clinical drug ingredient) Drug/Non Drug [...] Status W/U Status Risk Notes Problem Gout (35292848) Gout, unspecifie d (M10.9) Active confirmed Problem Acquired hallux rigidus (3923850) Hallux rigidus, right foot (M20.21) Active confirmed Problem 111514831 Hallux rigidus o f left foot (M20.22) Active confirmed Problem 61137434 Osteoarthritis o f right ankle and foot (M19.071) Active confirmed Problem Localized, primary osteoarthritis of the ankle and/or foot (485454736) -Arthritis of foot, right (M19.071) Active confirmed Vital Signs Blood pressure diastolic 81 mm Hg 08/15/2024 Height 6ft 1in in 08/15/2024 Blood pressure systolic 120 mm Hg 08/15/2024 Weight 300 lbs 08/15/2024 BMI 39.58 kg/m2 08/15/2024 Encounters Encounter Location Date [facility] [address] [place] [address] 02/10/2024 Sal Fine Pain in right foot M79.671 ; Metatarsalgia, right foot M77.41 and Hallux rigidus, right foot M20.21 [facility] [address] 04/07/2024 Shaila Neves Ingrown nail L60.0 and Hallux rigidus, right foot M20.21 [facility] [address] 07/07/2024 Shaila Neves Hallux rigidus, right foot M20.21 ; Hallux rigidus of left foot M20.22 ; Metatarsalgia, right foot M77.41 and Osteoarthritis of right ankle and foot M19.071 [facility] [address] [place] [address] 08/15/2024 Lizeth Olguin Hallux rigidus, righ t foot M20.21 ; Metatarsalgia, right foot M77.41 ; Osteoarthritis of right ankle and foot M19.071 and Pain in right foot M79.671 [facility] [address] [facility] [address] [place] [address] 07/25/2024 Shail[facility] Neves [facility] [address] [place] [address] 05/31/2024 Shaila Neves Assessments Encounter Date Diagnosis [...] X ray : Foot, right 3V 02/10/2024 18953-Funykmby Plate 12/31/2017 36282 I&D ABSCESS- SIMPLE,SINGLE 019 , D4796-KWLCJ/INJECT, JOINT/BURSA 0 06/27/2020, U8075-OZWBE/INJECT, JOINT/BURSA 0 10/31/2020 27180- Nail Unit Biopsy 12/31/2017 Insurance Providers Payer Name Payer Address Payer Phone Subscriber Number Group Number Insured Name Patient Relationship to Insured Coverage Start Date Coverage End Date Medicare National Govt Svcs Inc [address] [place] [address] [id number] Vipin Leger Jr Self - patient is the insured [employer]) [address] [place] [address] [id number] Vipin Leger Jr Self - patient is the insured Medical (General) History Medical History History ICD Code Anxiety Chicken pox Epilepsy Sleep apnea Surgical History Surgery Date(Month/Year) brain surgery 06/30/91 removal of malignent kidney tumor- [facility] -6 days 07/26/2018 Grace Moreno 12/12/20 Hospitalization History Reason Date(Month/Year) Cortisone shot right knee 02/03/2022 [facility] - Ear infection 2020
== END 2024-11-27 13:38 | disposition home or self-care (01) ==
LOC: HO.HOS 12:45
PROVIDERS: PCP Internal Medicine; Visit Provider Orthopaedic Surgery
DX: M17.11 Unilateral primary osteoarthritis, right knee (principal)
CPT/HCPCS: 20610

== ENCOUNTER → 2024-11-27 12:45 | Outpatient (BNVA) | payer MEDICARE, OTHER, SELFPAY | PROVIDERS: PCP Internal Medicine; Visit Provider Orthopaedic Surgery | DX: M17.11 Unilateral primary osteoarthritis, right knee (principal) | CPT/HCPCS: 20610; J7318 ==

== ENCOUNTER 2025-03-22 10:05 | Outpatient (AMB) | payer MEDICARE, OTHER, SELFPAY ==
--- NOTE | 2025-03-22 10:06 | MHC.OFFVIS ---
Intake Visit Reasons: Inj-Right knee cortisone-last 09/25/24 Intake Note: Vipin is a 49 year old male who presents today for a repeat Right Knee Injection, Last done 09/25/24. Patient continues to have relief with cortisone and gel injections alternating. He would like to repeat cortisone injection today Allergies carbamazepine (From TEGRETOL) Allergy (Severe, Verified 11/27/24 12:53) RASH lamotrigine (From Lamictal) Adverse Reaction (Verified 11/27/24 12:53) Hallucinations HPI HPI Inj-Right knee cortisone-last 09/25/24: Details: Vipin is a 49 year old male who presents today for a repeat Right Knee Injection, Last done 09/25/24. Patient continues to have relief with cortisone and gel injections alternating. He would like to repeat cortisone injection today [facility] Medical History Contusion of right knee Anxiety Seasonal allergies Arthritis History of seizures History of general anesthesia Sleep apnea Morbid obesity Tachycardia Essential hypertension Sinus tachycardia Surgical History History of nephrectomy, left History of wisdom tooth extraction Hx of brain surgery (~1992) Family History Father Dementia Mother No problems noted. Social History Alcohol intake: never Patient Tobacco Use Status: Never used Tobacco Physical Exam Const General: no acute distress and alert Orientation/consciousness: patient oriented x3 Resp Effort & Inspection: normal respiratory effort and able to speak in complete sentences Cardio Rate: regular rate Peripheral pulses: Peripheral pulses 2+ throughout GI Palpation (GI): Soft to palpation Skin Lesions: no lesions Rashes: no rashes Neuro General: patient oriented x3 Extrem Other: Right Knee: TTP mild medial joint line No effusion Psych Appearance: grossly normal Affect: normal affect Attitude: cooperative Office Procedures Joint Inj/Aspir; Non-Pain Clin Joint Injection/Drain Details: Injected 1 mL of Decadron and 3 mL 1% lidocaine and 3 mL of 0.25% Marcaine. Site was prepped using aseptic technique. Patient tolerated the procedure well. Shoulders, Hips, Knees, Knee Large Joint Injection : Right Knee Coding Procedure code (CPT) selection complete Assessment & Plan Assessment & Plan (1) Localized osteoarthritis of right knee: Code(s): M17.11 - Unilateral primary osteoarthritis, right knee Category: Medical Plan: Injected right knee. May follow up in 3 months. Xrays at that time. He has ipsilateral Hallux Rigidus and is considering surgical treatment. I would recommend foot treatment prior to knee surgery. Orders: Orders XR knee RT 3V Today M25.561 - Pain in right knee Coding Level of Care Code Est Pt Level 3 (52464) Diagnoses Localized osteoarthritis of right knee M17.11 CPT Codes Shoulders, Hips, Knees, - Knee Large Joint Injection : Right Knee ([id number])
== END 2025-03-22 10:19 | disposition home or self-care (01) ==
PROVIDERS: PCP Internal Medicine; Visit Provider Orthopaedic Surgery
DX: M17.11 Unilateral primary osteoarthritis, right knee (principal)
CPT/HCPCS: 20610; 99213

== ENCOUNTER 2025-03-22 10:05 | Outpatient (REF) | payer MEDICARE, OTHER, SELFPAY | END 2025-03-22 10:06 | disposition home or self-care (01) | LOC: HO.HOSX 10:05 | PROVIDERS: PCP Internal Medicine; Visit Provider Orthopaedic Surgery | DX: M17.11 Unilateral primary osteoarthritis, right knee (principal) | CPT/HCPCS: 20610; 99212; J0665; J1100; J2003 ==